=== PATIENT | male | born 1955 | race Caucasian/White ===

== ENCOUNTER 2017-04-22 17:02 | Emergency (ER) | payer OTHER ==
[~2017-04-22] VITALS: Ht 177.8 cm; Wt 121.8 kg
[~2017-04-22 17:02] MED LIST: ALLO300T29 PO; CHOL400T PO; GLYB2.5T5 PO; MELO-253 PO; MULT-892 PO; OMEP10CA4 PO; SMV40T PO; TRICOR145 PO; VIT E PO; [UNRECOGNIZED DRUG - CODE] PO
[2017-04-22 17:11] VITALS: BP 137/90; PULSE 117; RESP 14; O2SAT 98
[2017-04-22] MEDS ORDERED: FENO145T19 PO (17:17)
[2017-04-22] MEDS ORDERED: BENA1TAB15 PO (17:17)
[2017-04-22] MEDS ORDERED: DISU250T5 PO (17:17)
[2017-04-22] MEDS ORDERED: ALLO300T2 PO (17:17)
[2017-04-22] MEDS ORDERED: GLYB2.5T4 PO (17:17)
[2017-04-22] MEDS ORDERED: MELO-253 PO (17:17)
[2017-04-22] MEDS ORDERED: OMEP40CA36 PO (17:17)
[2017-04-22] MEDS: 0.9% Sodium Chloride 1,000 ML IV SCH ×2 (17:49→18:30)
[2017-04-22 17:55] LABS: BASOPHILS % (AUTO) 0.7 % (0-3); EOSINOPHILS % (AUTO) 5.4 % (0-5); MONOCYTES % (AUTO) 7.7 % (4-12); Mean Corpuscular Hemoglobin 30.5 pg (27.0-35.0); Mean Corpuscular Volume 84.5 fL (81-100); NEUTROPHILS % (AUTO) 67.5 % (40-74); Platelet Count 168 bil/L (150-400)
[2017-04-22 18:12] VITALS: BP 136/95; PULSE 102; RESP 18; O2SAT 98
--- NOTE | 2017-04-22 18:13 | ABG ---
DateTimeAnalyzed 18:06:00 -_ pH ____7.403 - pCO2 ___37.7__ -mmHg pO2 ___75.2__ -mmHg HCO3- ___23.0__ -mmol/L ABE ___-0.9__ -mmol/L tHb ___15.5__ -g/dL O2Hb ___92.3__ -% COHb ____1.7__ -% MetHb ____0.7__ -% sO2 ___94.6__ -% FIO2 ___21.0__ -% Drawn By RN - Date/Time Notified____ 18:13:00 -_ Notified By btl - Notified Whom ___Dr. O'Sylvie - B 761 -mmHg tO2 ___20.2__ -Vol% Gerald test N/A -
--- NOTE | 2017-04-22 18:15 | ED.REPORT ---
HPI-General Illness Date of Service Apr 22, 2017 ED Provider: Mc Ceja MD Pt is a 61 y/o male w/ a hx of NIDDM, HTN, presenting to the ED from his PCP ( Sachin FERNANDES) due to hyperglycemia of 439. The patient was seen at a [facility] today and was sent here for further evaluation once it was discovered that his blood sugar was 439 and he was tachycardic. The patient went there for routine f/u for blood tests. He hasn't been feeling well for 1 week with associated symptoms of malaise, lightheaded, difficulty concentrating , polyuria, polydipsia. He does have a history of diabetes and takes Glyburide 2.5 mg as directed and has not missed any doses. His blood sugars normally run around 150. He states he used Metformin in the past but didn't feel well after taking it so this was stopped. Pt denies CP, SOB, fever, chills, nausea, vomiting, abdominal pain. Nursing Notes Stated Complaint: HIGH BLOOD SUGAR Chief Complaint: General Complaint Nursing Notes Reviewed: Yes Allergies: Coded Allergies: lisinopril (Verified Allergy, Intermediate, Swelling of lips, 04/22/17) candesartan (Verified Allergy, Unknown, swollen lips, 04/22/17) Scheduled Allopurinol (Allopurinol) 300 Mg Tablet 300 MG PO DAILY Benazepril / HCTZ 20-25 mg (Benazepril / HCTZ 20-25 mg) 1 Each Tablet 2 TAB PO BID Disulfiram (Disulfiram) 250 Mg Tablet 250 MG PO DAILY Fenofibrate Nanocrystallized (Fenofibrate) 145 Mg Tablet 145 MG PO DAILY Glyburide (Glyburide) 2.5 Mg Tablet 2.5 MG PO DAILY Meloxicam (Meloxicam) 15 Mg Tablet 15 MG PO DAILY Omeprazole (Omeprazole) 40 Mg Capsule.dr 40 MG PO BID General Time Seen by MD: 18:10 Chief Complaint Other (hyperglycemia) Hx Obtained From: Patient Arrived By: Walk-in Sudden in Onset?: No Onset Occurred: Onset unknown Symptom Duration: Since onset Severity: Current: No pain currently Severity: Maximum: No pain Recent Healthcare: Recent doctor visit Similar Sx Previous: Yes Past Medical History Past Medical History Type 2 diabetes GERD Hypertension Alcohol abuse Hx pneumonia Hx ulcer Mild arthritis low back Past Surgical History None reported Smoking History Unknown if Ever Smoker Social History Alcohol Use: In recovery Ambulatory Status Independent Review of Systems Full Review of Systems Constitutional: Denies: Chills, Fever Respiratory: Denies: Non-productive cough, Shortness of breath Cardiovascular: Denies: Chest pain, Dyspnea on exertion GI: Denies: Abdominal pain, Nausea, Vomiting Male: Denies Dysuria Endocrine: Reports: Polydipsia, Polyuria Neurologic: Denies: Confusion Complete sys rev & neg: except as marked. Physical Exam Vital Signs Vital Signs Date Time Temp Pulse Resp B/P Pulse Ox O2 Delivery O2 Flow Rate FiO2 04/22/17 20:25 36.9 92 18 152/98 97 Room Air 04/22/17 19:01 96 20 157/108 99 Room Air 04/22/17 18:12 102 18 136/95 98 Room Air 04/22/17 17:11 36.9 117 14 137/90 98 Room Air Initial VS: Reviewed, Vital signs abnormal Head / Eyes: Atraumatic, Normocephalic, PERRL ENT: Mucous membranes moist, Conjunctiva normal, No scleral icterus Neck: Supple, Full range of motion Respiratory: Breath sounds normal, Clear to auscultation, No respiratory distress Cardiovascular: Regular rate & rhythm, Heart sounds normal, Intact distal pulses Abdomen / GI: Soft, Non-tender, No guarding, No rebound, No distention Extremities: Vascular intact, Neuro intact, No swelling, No tenderness Skin: Warm, Dry, No cyanosis Neurologic: Alert, Oriented, Nonfocal Psychiatric: Mood/affect normal, Behavior normal, Normal thought content General/Constitutional: Awake, Alert, No acute distress, Well appearing, Cooperative, Not toxic appearing Appearance / Presentation: Positive: Obese Interpretation & Diagnostics Lab Results Interpretation Result Diagram: 04/22/17 1751 04/22/17 1751 Test 04/22/17 17:51 04/22/17 17:52 04/22/17 18:48 White Blood Count 9.6th/mm3 (3.8-10.1) Red Blood Count 5.35mil/mm3 (4.40-5.80) Hemoglobin 16.3g/dL (13.8-17.2) Hematocrit 45.2% (41.0-50.0) Mean Corpuscular Volume 84.5fL (81-100) Mean Corpuscular Hemoglobin 30.5pg (27.0-35.0) Mean Corpuscular Hemoglobin Concent 36.1% (32.0-37.0) Red Cell Distribution Width 12.8% (12.3-15.4) Platelet Count 168bil/L (150-400) Neutrophils (%) (Auto) 67.5% (40-74) Lymphocytes (%) (Auto) 18.3% (14-46) Monocytes (%) (Auto) 7.7% (4-12) Eosinophils (%) (Auto) 5.4% (0-5) Basophils (%) (Auto) 0.7% (0-3) Sodium Level 134mEq/L (134-144) Potassium Level 4.4mEq/L (3.5-5.2) Chloride Level 94mEq/L (97-108) Carbon Dioxide Level 22mmol/L (18-29) Blood Urea Nitrogen 31mg/dL (6-24) Creatinine 1.17mg/dL (0.76-1.27) Estimat Glomerular Filtration Rate 68mL/min (>59) Glucose Level 437mg/dL (60-99) Calcium Level 10.0mg/dL (8.5-10.1) Total Bilirubin 0.4mg/dL (0.0-1.2) Aspartate Amino Transf (AST/SGOT) 62U/L (0-50) Alanine Aminotransferase (ALT/SGPT) 69U/L (0-44) Alkaline Phosphatase 102U/L (25-160) Total Protein 8.3g/dL (6.4-8.4) Albumin 4.4g/dL (3.4-5.0) Ketones Negative (Negative) Hold Jacob Top Tube Received (Received) Hold Urine Received (Received) ABG Interpretation ABG Interpretation: VENOUS: DateTimeAnalyzed 18:06:00 -_ pH ____7.403 - pCO2 ___37.7__ -mmHg pO2 ___75.2__ -mmHg HCO3- ___23.0__ -mmol/L ABE ___-0.9__ -mmol/L Exam Performed by: Allied health pract Exam Interpreted by: ED physician Re-Eval/Medical Decision Med Decision/Clinical Course Pt is a 61 y/o male w/ a hx of NIDDM, HTN, presenting to the ED from his PCP ( Sachin FERNANDES) due to hyperglycemia of 439. He complains of feeling generally "lousy and fatigued" and having increased thirst. He states that he is taking his prescribed glyburide for his diabetes though he has never required insulin in the past. He has no other complaints at this time. He states that he was sent here because his nurse practitioner stated that she could "not handle his high blood sugar". Here in the emergency department the patient is afebrile, hemodynamically stable and in no apparent distress. His examination is relatively benign. Blood glucose upon arrival 439 He was treated with IV fluids, 10 units of subcutaneous insulin Labs notable as below: CBC: unremarkable CMP: very mildly elevated transaminases, glucose of 437, BUN of 31, creatinine of 1.17, bicarb of 22. Anion gap is 18 Ketones negative Venous blood gas: pH 7.403 pCO2 37.7 pO2 75.2 HCO3- 23.0 MARINE -0.9 Serial blood sugars improved after treatment with insulin and IV fluids. No evidence at this time of diabetic ketoacidosis or significant hyperglycemic hyperosmolar state. Patient is well-appearing with stable vital signs and nontoxic. No evidence of acute coronary syndrome based upon his presentation today. No evidence of acute infectious insult. Patient was discussed with Lázaro programmable logic controller assembler for his primary care physician Dr. Garcia. He will be seen in clinic tomorrow or Wednesday. They will reassess at that time need to start subcutaneous insulin. Prior to discharge follow-up and return precautions were reviewed in detail with the patient who verbalized understanding and agreement with the plan. The patient was discharged in stable condition. Time of Eval: 19:57 Re-Evaluation/Progress Note: Pt rechecked. Informed pt of plan for treatment. Pt understands and agrees with plan for treatment. F/U instructions and RTER warnings given. All questions addressed. Consultation : Referral / Consult Name: Christofer Garcia DO Call Returned at: 19:57 Air Traffic Controller Center: Agrees with eval, Agrees with plan Note: Will make sure [facility] knows about the patient and get him in within a few days. Counseled Regarding: Diagnosis, Lab results, Need for follow-up, When/why to return to ED Discharge & Departure Primary Impression: Hyperglycemia Additional Impressions: Dehydration Fatigue Fatigue type: unspecified Qualified Code: R53.83 - Other fatigue Obesity Obesity type: unspecified obesity type Obesity severity: unspecified obesity severity Qualified Code: E66.9 - Obesity, unspecified Transaminitis History of alcohol abuse Disposition: Home Discharge Condition All VS Reviewed: Yes Condition: Stable Patient Instructions: Type 2 Diabetes in Adults (ED) Additional Instructions: Thank you for seeking care at the emergency room. It is difficult for us to make definitive diagnoses in the ED but we believe that you are experiencing symptoms caused by high blood sugar. Our primary goal today in the ED was to evaluate you for any life-threatening conditions. Your evaluation was reassuring. Your labs tests today were reassuring other than the blood sugar of 439. Please continue to take your glyburide. Call first thing tomorrow morning to get in and see Dr. Easley. They will be check your sugar and may start you on a low-dose of insulin. You should return to the ED immediately if you develop increasing urination, increasing thirst, fevers, vomiting, cough, shortness of breath, chest pain, lightheadedness, weakness or any other concerning signs or symptoms. Thank you for letting us partake in your care today. Referrals: Josué Easley DO (PCP) Sachin Van Attestation Portions of this note were transcribed by Seferino Mckeon. I, Dr. Ceja, personally performed the history, physical exam and medical decision-making; I reviewed and confirmed the accuracy of the information in the transcribed note. Signed by Nicolás Magallanes, 04/22/17 - 1830 copies to: Sachin Van; Josué Easley Beck O MD Jul 13, 2017 18:15 SEFERINO MCKEON Apr 22, 2017 18:17
[2017-04-22] MEDS ORDERED: Insulin Human REGular-Omnicell 100 Unit/mL SUBQ ONE (18:35)
[2017-04-22 19:01] VITALS: BP 157/108; PULSE 96; RESP 20; O2SAT 99
[2017-04-22] MEDS ORDERED: 0.9% Sodium Chloride 1,000 ML IV ONE (19:55)
[2017-04-22 20:25] VITALS: BP 152/98; PULSE 92; RESP 18; O2SAT 97
== END 2017-04-22 20:26 | disposition home or self-care (01) ==
LOC: SED 17:02
DX: E11.65 Type 2 diabetes mellitus with hyperglycemia (principal); E86.0 Dehydration; E66.9 Obesity, unspecified; R74.0 Nonspecific elevation of levels of transaminase and lactic acid dehydrogenase [LDH]; R53.83 Other fatigue; F10.10 Alcohol abuse, uncomplicated; I10 Essential (primary) hypertension; K21.9 Gastro-esophageal reflux disease without esophagitis; Z87.01 Personal history of pneumonia (recurrent); Z86.59 Personal history of other mental and behavioral disorders; Z88.8 Allergy status to other drugs, medicaments and biological substances; Z79.84 Long term (current) use of oral hypoglycemic drugs
CPT/HCPCS: 36415; 80053; 82009; 82375; 82803; 82948; 85025; 93005; 96360; 96361; 96372; 99285; J1815; J7030

== ENCOUNTER 2017-05-06 15:03 | Observation (INO) | payer OTHER ==
[~2017-05-06] VITALS: Ht 177.8 cm; Wt 116.7 kg
[~2017-05-06 15:03] MED LIST changes: +ALLO300T2 PO; -ALLO300T29 PO; +BENA1TAB15 PO; -CHOL400T PO; +DISU250T5 PO; +FENO145T19 PO; +GLYB2.5T4 PO; -GLYB2.5T5 PO; -MULT-892 PO; -OMEP10CA4 PO; +OMEP40CA36 PO; -SMV40T PO; -TRICOR145 PO; -VIT E PO; -[UNRECOGNIZED DRUG - CODE] PO
[2017-05-06] MEDS ORDERED: 0.9% Sodium Chloride 1,000 ML IV ONE ×2 (15:24→19:30)
--- NOTE | 2017-05-06 15:37 | DRSVH ---
PROCEDURE: CT BRAIN (TPA) ([id number]) INDICATIONS: confusion TECHNIQUE: Noncontrast 4.5 mm thick angled axial sections acquired from the foramen magnum to the vertex, with c oronal reformats. COMPARISON: None. FINDINGS: Image quality: Limited by patient motion requiring separate acquisitions of the cephalad and caudal p ortions of the brain. CSF spaces: Basal cisterns are patent. No extra-axial fluid collections. Ventricles are normal in size and shape. Brain: No midline shift. No intracranial masses or hemorrhage. Best-white matter interface is norm al. Skull and face: Calvarium and visualized facial bones are intact, without suspicious lesions. Sinuses: Visualized sinuses and mastoids are clear. IMPRESSION: 1. No acute intracranial disease process within the limitations caused by motion artifact.. 2. Findings telephoned to Dr. Shun Fitzgerald on 05/06/17 at 1533 hrs. This study fulfills neurological imaging criteria for inclusion or exclusion of acute stroke therapie s based on available published neurological imaging guidelines. Dictated by: Kassandra Mcgee MD, PhD on 05/06/2017 at 15:30 Approved by: Kassandra Mcgee MD, PhD on 05/06/2017 at 15:35
[2017-05-06 15:39] LABS: EOSINOPHILS % (AUTO) 3.2 % (0-5); MONOCYTES % (AUTO) 9.8 % (4-12); Mean Corpuscular Hemoglobin 30.9 pg (27.0-35.0); Mean Corpuscular Volume 85.1 fL (81-100); NEUTROPHILS % (AUTO) 61.5 % (40-74); Platelet Count 180 bil/L (150-400)
[2017-05-06 15:41] VITALS: BP 147/91; PULSE 100; RESP 24; O2SAT 96
[2017-05-06 15:51] VITALS: BP 149/94; PULSE 94; RESP 21; O2SAT 95
[2017-05-06 16:03] LABS: INR 0.94 ratio
[2017-05-06 16:15] LABS: TROPONIN T < 0.010 ug/L (0.0-0.011)
--- NOTE | 2017-05-06 16:34 | ABG ---
DateTimeAnalyzed 16:27:00 -_ pH ____7.400 - 7.350 7.450 pCO2 ___37.8__ -mmHg 35.0 45.0 pO2 ___47.4__ -mmHg 69.0 116 HCO3- ___22.9__ -mmol/L 22.0 26.0 ABE ___-1.0__ -mmol/L tHb ___14.5__ -g/dL O2Hb ___81.1__ -% COHb ____1.0__ -% MetHb ____0.9__ -% sO2 ___82.7__ -% FIO2 ___21.0__ -% Drawn By gj - Date/Time Notified____ 16:34:00 -_ Oxygen Device 1 _ROOM AIR - Notified By gj - Notified Whom ___DR. ELISABET - B 761 -mmHg tO2 ___16.5__ -Vol% Gerald test _Positive -
--- NOTE | 2017-05-06 17:10 | ED.REPORT ---
HPI-Stroke / CVA May 06, 2017 ED Provider: Jomar Fitzgerald MD A 61 year old male with a history of diabetes, high cholesterol, hypertension and pneumonia is brought to the ED via EMS due to a possible stroke. The pt became confused at 12:00, followed by right-sided numbness/tingling, difficulty speaking, difficulty swallowing, diaphoresis, lightheadedness and blurred vision. He denies syncope. The pt was seen in the ED recently for hyperglycemia , at which point he was experiencing confusion, but states this feels different. His confusion has been persistent since onset without notable alleviating or exacerbating factors. Patient is somewhat of a difficult historian, though denies any other complaints at this time. Nursing Notes Stated Complaint: DIFFICULTY SWALLOWING Chief Complaint: Stroke Symptoms Nursing Notes Reviewed: Yes Allergies: Coded Allergies: lisinopril (Verified Allergy, Intermediate, Swelling of lips, 04/22/17) candesartan (Verified Allergy, Unknown, swollen lips, 04/22/17) Bumble Bee (Verified Adverse Reaction, Severe, anaphylactic , 05/06/17) Scheduled Allopurinol (Allopurinol) 300 Mg Tablet 300 MG PO DAILY (Reported) Benazepril / HCTZ 20-25 mg (Benazepril / HCTZ 20-25 mg) 1 Each Tablet 2 TAB PO DAILY (Reported) Fenofibrate Nanocrystallized (Fenofibrate) 145 Mg Tablet 145 MG PO DAILY ( Reported) Glyburide (Glyburide) 2.5 Mg Tablet 2.5 MG PO DAILY (Reported) Insulin Glargine (Lantus U100 Insulin Vial) 100 Unit/Ml Vial 10 UNIT SUBQ BID ( Reported) Omeprazole (Omeprazole) 40 Mg Capsule.dr 40 MG PO BID (Reported) General Time Seen by Provider: 15:23 Chief Complaint Numbness, Confusion, Slurred speech Hx Obtained From: Patient Arrived By: Walk-in Time last known well 12:00 Sudden in Onset?: Yes Symptom Duration: Since onset Progression Since Onset: Constant Associated with: Reports: Confusion, Denies: Balance problem, Headache, Incontinence, Loss of consciousness, Syncope, Vomiting Pertinent Negative: Pt denies other symptoms Pertinent Negative: Exacerbated by nothing, Relieved by nothing Context Related History: Reports: Diabetes mellitus, Denies: Cerebrovascular accident, Intracranial bleed, Intracranial neoplasm Recent Healthcare: Recent doctor visit Similar Sx Previous: No Risk Factors )( TPA Administration/Criteria Stroke Thrombolytic Therapy : TPA Considered: Yes Neurologist Contacted: Yes Disc Risk/Benefit/Alternatives: Yes TPA Administered Intravenously: No, not indicated Relative Exclusion Crit: Minor improv stroke sym NIH Stroke Scale Level of Consciousness: Alert and responsive (0) Ask Month & Age: Both questions right (0) Open/Close Eyes/Hand Range Management Specialist: Performs both tasks (0) Horizontal EO Movements: None (0) Visual Blanc: No visual loss (0) Facial Palsy: Normal symmetry (0) Right Arm Motor Drift (10s): No drift 10 sec (0) Left Arm Motor Drift (10s): No drift 10 sec (0) Right Leg Motor Drift (5s): No drift 5 sec (0) Left Leg Motor Drift (5s): No drift 5 sec (0) Limb Ataxia FNF/Heel-[place]: No ataxia (0) Sensation (Arms/Legs/Face): Pinprick less sharp (1) (sensation decreased on right as compared to the left) Language Aphasia: No aphasia, normal (0) Dysarthria: No dysarthria, normal (0) Extinction/Inattention: No exctinct/inattent (0) NIHSS Score: 1 Time NIHSS Performed: 15:32 Date NIHSS Performed: May 06, 2017 Past Medical History Past Medical History Notes: Denies pertinent family hx Past Medical History Type 2 diabetes GERD Hypertension Alcohol abuse Hx pneumonia Hx ulcer High cholesterol Mild arthritis low back 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 Past Surgical History None reported Smoking History Unknown if Ever Smoker Social History Alcohol Use: In recovery Ambulatory Status Independent Review of Systems Review of Systems Note: difficulty speaking difficulty swallowing right-sided weakness Constitutional: Reports: Weakness - generalized, Denies: Fever Eyes: Denies: Diplopia, Visual loss bilateral Ears / Nose / Throat: Denies: Sore throat, Throat swelling Respiratory: Denies: Non-productive cough, Shortness of breath Cardiovascular: Denies: Chest pain GI: Denies: Abdominal pain Musculoskeletal: Denies: Back pain Skin: Reports Diaphoresis Neurologic: Reports: Confusion, Lightheaded, Numbness, Weakness, Denies: Syncope Psychiatric: Reports: Confusion, Denies: Hostile Complete sys rev & neg: except as marked. Physical Exam Constitutional: Well-developed, well-nourished. Appears somewhat confused. Head: Normocephalic and atraumatic. Mouth/Throat: Oropharynx is clear and moist. No oropharyngeal exudate. Eyes: EOM are normal. Left pupil 7 mm and irregular (baseline per patient). Right pupil 3 mm and reactive. Neck: Supple, no tracheal deviation. Cardiovascular: Normal rate, regular rhythm. Equal and intact distal pulses throughout. Pulmonary/Chest: Effort normal and breath sounds normal. No respiratory distress. Abdominal: Soft. No distension. There is no tenderness, rebound, or guarding. Bowel sounds present. Musculoskeletal: Range of motion grossly intact, moving all extremities. No edema or tenderness appreciated. Neurological: Somewhat hesitant to respond, but is AOx3. Sensation decreased on right as compared to the left (less sharp). Gag reflex intact. NIH stroke scale : 1 - please see above. Skin: Warm and dry, no rashes or pallor appreciated. Psychiatric: Appropriate mood and affect. Behavior appears normal. Initial Vital Signs Vital Signs (First) Date Time Temp Pulse Resp B/P Pulse Ox O2 Delivery O2 Flow Rate FiO2 05/06/17 15:41 36.9 100 24 147/91 96 Room Air Initial VS: Reviewed Interpretation & Diagnostics Lab Results Interpretation Result Diagram: 05/06/17 1525 05/06/17 1525 Test 05/06/17 15:25 05/06/17 17:26 White Blood Count 7.7th/mm3 (3.8-10.1) Red Blood Count 5.05mil/mm3 (4.40-5.80) Hemoglobin 15.6g/dL (13.8-17.2) Hematocrit 43.0% (41.0-50.0) Mean Corpuscular Volume 85.1fL (81-100) Mean Corpuscular Hemoglobin 30.9pg (27.0-35.0) Mean Corpuscular Hemoglobin Concent 36.3% (32.0-37.0) Red Cell Distribution Width 12.9% (12.3-15.4) Platelet Count 180bil/L (150-400) Neutrophils (%) (Auto) 61.5% (40-74) Lymphocytes (%) (Auto) 24.2% (14-46) Monocytes (%) (Auto) 9.8% (4-12) Eosinophils (%) (Auto) 3.2% (0-5) Basophils (%) (Auto) 1.0% (0-3) Prothrombin Time 10.0sec (8.1-12.5) Prothromb Time International Ratio 0.94ratio Activated Partial Thromboplast Time 27.0sec (22.8-33.0) Sodium Level 134mEq/L (134-144) Potassium Level 4.0mEq/L (3.5-5.2) Chloride Level 97mEq/L (97-108) Carbon Dioxide Level 18mmol/L (18-29) Blood Urea Nitrogen 19mg/dL (6-24) Creatinine 1.02mg/dL (0.76-1.27) Estimat Glomerular Filtration Rate 79mL/min (>59) Glucose Level 122mg/dL (60-99) Calcium Level 10.1mg/dL (8.5-10.1) Total Bilirubin 0.4mg/dL (0.0-1.2) Aspartate Amino Transf (AST/SGOT) 71U/L (0-50) Alanine Aminotransferase (ALT/SGPT) 70U/L (0-44) Alkaline Phosphatase 73U/L (25-160) Troponin T < 0.010ug/L (0.0-0.011) Total Protein 8.1g/dL (6.4-8.4) Albumin 4.4g/dL (3.4-5.0) Hold Jacob Top Tube Received (Received) Alcohols < 10mg/dL (0-10) Urine Color Yellow (YELLOW) Urine Appearance Clear (CLEAR,HAZY) Urine pH 6.0 (5.0-8.0) Urine Specific [place] 1.010 (1.003-1.035) Urine Protein Negativemg/dL (NEG,TRACE) Urine Glucose (UA) Negativemg/dL (NEGATIVE) Urine Ketones Negativemg/dL (NEGATIVE) Urine Occult Blood Negative (NEGATIVE) Urine Nitrite Negative (NEGATIVE) Urine Bilirubin Negative (NEGATIVE) Urine Urobilinogen 1.0mg/dL (NORMAL) Urine Leukocyte Esterase Negative (NEGATIVE) Urine RBC N/hpf (0-2) Urine WBC N/hpf (0-5) Urine Epithelial Cells None/hpf (NONE-MOD) Urine Crystals None seen (NONE SEEN) Urine Bacteria Few/hpf (NONE-FEW) Urine Hyaline Casts None/lpf (NONE) Urine Granular Casts None seen (NONE SEEN) Urine Waxy Casts None seen (NONE SEEN) Urine Red Blood Cell Casts None seen (NONE SEEN) Urine White Blood Cell Casts None seen (NONE SEEN) Urine Mucus None seen (None Seen) Urine Trichomonas None seen (NONE SEEN) Urine Yeast None (NONE SEEN) Urinalysis Comment None Urine Culture Reflexed Not indicated ECG Interpretation ECG Interpretation: normal sinus rhythm with a rate of 97 Time: 15:56 Interpreted by: ED physician CT Head Interpretation IMPRESSION: 1. No acute intracranial disease process within the limitations caused by motion artifact.. 2. Findings telephoned to Dr. Shun Fitzgerald on 05/06/17 at 1533 hrs. This study fulfills neurological imaging criteria for inclusion or exclusion of acute stroke therapies based on available published neurological imaging guidelines. Dictated by: Kassandra Mcgee MD, PhD on 05/06/2017 at 15:30 Approved by: Kassandra Mcgee MD, PhD on 05/06/2017 at 15:35 Interpretation / Wet Read by: Interpret - Radiologist Re-Eval/Medical Decision Med Decision/Clinical Course In summary, 61-year-old male presenting to the ED for evaluation of the acute onset of confusion and right-sided numbness/weakness that started approximately 3 hours prior to arrival. Differential is broad and includes stroke/CVA, TIA, hypoglycemia, intracranial bleed, neuropathy, metabolic abnormality, acute intoxication, etc. Given the acute onset of his symptoms, he was made a code stroke upon his arrival and taken directly to the CT scanner. I met him upon arrival back to the room. Blood glucose within normal limits. Still having right-sided numbness and tingling, decreased sensation as compared to the left; NIH stroke scale of 1. tPA considered and discussed with the neurologist at [facility], as well as the patient, however given relatively low stroke scale score and disability, it was felt that the risks of tPA outweighed its benefits. Rest of workup here in the ED unrevealing for a cause; blood gas with no evidence of acidosis or acute compensation noted. CBC and CMP grossly within normal limits with the exception of the patient's liver function tests with a mildly elevated AST and ALT. Troponin negative. Alcohol levels negative. Given aspirin. EKG demonstrates sinus rhythm, no acute ischemic changes. Given the above, plan admission for further management and evaluation of suspected stroke, MRI, etc. Discussed with the patient at length, who is agreeable to the plan as stated, no further questions. Source of Hx: Old records Re-Evaluation/Progress : Time of Eval: 15:47 Patient Status: Condition improved Re-Evaluation/Progress Note: Pt informed of the diagnosis and plan for admission during the intial interview. The pt understands and agrees with the plan. All questions are addressed at this time. Consultation #1: Call Returned at: 15:41 Note: Consulted with [facility] regarding pt's case. [facility] agrees with the evaluation and plan. Consultation #2: Referral / Consult Name: Santiago Ferreira Consulted With: Hospitalist Call Returned at: 17:10 Clinical Assoc: Agrees with eval, Agrees with plan, Accepts admit Note: Spoke with Dr. Ferreira, hospitalist, regarding pt's case. Dr. Ferreira agrees with the evaluation and agrees to admit the pt. Counseled Regarding: Diagnosis, Lab results, Need for admission Patient Discharge & Departure Impression: Primary Impression: CVA (cerebral vascular accident) CVA mechanism: unspecified Qualified Code: I63.9 - Cerebral infarction, unspecified Disposition: ADMITTED TO HOSPITAL Discharge Condition All VS Reviewed: Yes Condition: Stable Referrals: Sachin Van (PCP) Crit Care Except Billable Proc Time Spent: 30-74 minutes Services Performed: Patient management by me, Time spent at bedside, Reviewing test results, Reviewing imaging, Discussing patient care, Documentation in record Critical Care Notes: Please see MDM. Scribe Attestation Portions of this note were transcribed by Ami Wallace. I, Dr. Fitzgerald personally performed the history, physical exam and medical decision-making; I reviewed and confirmed the accuracy of the information in the transcribed note. copies to: Sachin Van William B MD May 06, 2017 17:10 AMI WALLACE May 06, 2017 17:17
[2017-05-06 17:20] VITALS: BP 143/89; PULSE 87; RESP 20; O2SAT 96
[2017-05-06 17:45] LABS: APPEARANCE,URINE CLEAR (CLEAR,HAZY); COLOR,URINE YELLOW (YELLOW); OCCULT BLOOD,URINE NEGATIVE (NEGATIVE)
[2017-05-06] MEDS ORDERED: INSU100V7 SUBQ (18:26)
[2017-05-06] MEDS ORDERED: Ondansetron 2 mg/mL 2 mL Inj IVPUSH PRN (19:30)
[2017-05-06] MEDS ORDERED: Labetalol 5 mg/mL 4 mL Inj IVPUSH PRN (19:30)
[2017-05-06] MEDS ORDERED: Alum-Mag Hydrox-Simeth 30 mL Suspension PO PRN (19:30)
[2017-05-06] MEDS ORDERED: Polyethylene Glycol (PEG) 17 Gm Powder PO PRN (19:30)
--- NOTE | 2017-05-06 19:38 | PCM.HPMED ---
Subjective Date of Service May 06, 2017 Primary Provider: Admitting Physician: Jimbo Lombardi MD Primary Care Physician: Sachin Van Attending Physician: Jimbo Lombardi MD Chief Complaint: Right-sided sensation loss History of Present Illness: 61-year-old male with history of alcoholism, diabetes, and untreated sleep apnea presents to the emergency department due to acute onset of right sided numbness, aphasia confusion, and lightheadedness. The patient states that this started at 12:00 today while he was at work and also states that it began with numbness in both of his upper limbs before localizing in the right, and also describes associated diaphoresis, head pressure and a racing heartbeat with mild chest pressure. Patient states that he has had multiple episodes like this over the last few years but this one was by far the worst. During this episode he had a sense of impending doom and states that his personal life he has under more stress than he has ever been under. Patients also states that couple weeks ago she had blurry vision and his had intermittent episodes of cloudy mentation but all of these seem to be connected with a blood glucose of greater than 450. Over the last couple days he says his blood glucoses been much better but is unable to give a number. Patient is a former alcoholic but has been sober for 8 weeks without reports of seizure activity. This alcoholism is also affected his personal relationships this family. Emergency room CT was negative for bleed. Patient was given aspirin and a liter of normal saline. Labs are relatively unremarkable except for mild elevation in transaminases and glucose of 122. On examining the ED the patient' s NIH score of 1 with decreased sensation on the right compared to left face, upper extremity. Patient is not a candidate for TPA due to symptom severity not meeting threshold. Review of Systems: Complete review of systems performed; pertinent positives and negatives per history of present illness, all other systems reviewed and are negative Constitutional: Negative, except as otherwise mentioned in the history above. Ophthalmologic: Negative, except as otherwise mentioned in the history above. Cardiovascular: Negative, except as otherwise mentioned in the history above. Respiratory: Negative, except as otherwise mentioned in the history above. Gastrointestinal: Negative, except as otherwise mentioned in the history above. Genitourinary: Negative, except as otherwise mentioned in the history above. Musculoskeletal: Negative, except as otherwise mentioned in the history above. Neurological: Negative, except as otherwise mentioned in the history above. Psychiatric: Negative, except as otherwise mentioned in the history above. Hematologic/Lymphatic: Negative, except as otherwise mentioned in the history above. Allergic/Immunologic: Negative, except as otherwise mentioned in the history above. Allergies Coded Allergies: lisinopril (Verified Allergy, Intermediate, Swelling of lips, 04/22/17) candesartan (Verified Allergy, Unknown, swollen lips, 04/22/17) Bumble Bee (Verified Adverse Reaction, Severe, anaphylactic , 05/06/17) Home Medications Allopurinol (Allopurinol) 300 Mg Tablet 300 MG PO DAILY (Reported) Benazepril / HCTZ 20-25 mg (Benazepril / HCTZ 20-25 mg) 1 Each Tablet 2 TAB PO DAILY (Reported) Fenofibrate Nanocrystallized (Fenofibrate) 145 Mg Tablet 145 MG PO DAILY ( Reported) Glyburide (Glyburide) 2.5 Mg Tablet 2.5 MG PO DAILY (Reported) Insulin Glargine (Lantus U100 Insulin Vial) 100 Unit/Ml Vial 10 UNIT SUBQ BID ( Reported) Omeprazole (Omeprazole) 40 Mg Capsule.dr 40 MG PO BID (Reported) Exam Vital Signs & I/O Vital Sign- Last 8 Hours Date Time Temp Pulse Resp B/P Pulse Ox O2 Delivery O2 Flow Rate FiO2 05/07/17 05:45 36.8 84 16 131/85 98 Room Air 05/07/17 00:57 36.7 72 18 108/72 98 Room Air Intake and Output- Last 8 Hour 05/07/17 Cumulative From/Thru 06:59 05/06/17 15:41 - 05/07/17 05:45 Intake Total 100 ml 1099 ml Output Total 1000 ml 1000 ml Balance -900 ml 99 ml Intake Oral 100 ml 100 ml IV Total 999 ml Output Urine Total 1000 ml 1000 ml # Voids 1 1 # Bowel Movements 0 0 Lab & Micro Results Laboratory Tests Test 05/06/17 15:25 05/06/17 17:26 05/06/17 22:07 05/06/17 23:00 White Blood Count 7.7th/mm3 (3.8-10.1) Red Blood Count 5.05mil/mm3 (4.40-5.80) Hemoglobin 15.6g/dL (13.8-17.2) Hematocrit 43.0% (41.0-50.0) Mean Corpuscular Volume 85.1fL (81-100) Mean Corpuscular Hemoglobin 30.9pg (27.0-35.0) Mean Corpuscular Hemoglobin Concent 36.3% (32.0-37.0) Red Cell Distribution Width 12.9% (12.3-15.4) Platelet Count 180bil/L (150-400) Neutrophils (%) (Auto) 61.5% (40-74) Lymphocytes (%) (Auto) 24.2% (14-46) Monocytes (%) (Auto) 9.8% (4-12) Eosinophils (%) (Auto) 3.2% (0-5) Basophils (%) (Auto) 1.0% (0-3) Prothrombin Time 10.0sec (8.1-12.5) Prothromb Time International Ratio 0.94ratio Activated Partial Thromboplast Time 27.0sec (22.8-33.0) Sodium Level 134mEq/L (134-144) Potassium Level 4.0mEq/L (3.5-5.2) Chloride Level 97mEq/L (97-108) Carbon Dioxide Level 18mmol/L (18-29) Blood Urea Nitrogen 19mg/dL (6-24) Creatinine 1.02mg/dL (0.76-1.27) Estimat Glomerular Filtration Rate 79mL/min (>59) Glucose Level 122mg/dL (60-99) Calcium Level 10.1mg/dL (8.5-10.1) Total Bilirubin 0.4mg/dL (0.0-1.2) Aspartate Amino Transf (AST/SGOT) 71U/L (0-50) Alanine Aminotransferase (ALT/SGPT) 70U/L (0-44) Alkaline Phosphatase 73U/L (25-160) Troponin T < 0.010ug/L (0.0-0.011) 0.010ug/L (0.0-0.011) Total Protein 8.1g/dL (6.4-8.4) Albumin 4.4g/dL (3.4-5.0) Triglycerides Level 225mg/dL (0-149) Cholesterol Level 140mg/dL (100-199) LDL Cholesterol, Calculated 65.000mg/dL (0-99) VLDL Cholesterol 45.000mg/dL HDL Cholesterol 30mg/dL (>39) Cholesterol/HDL Ratio 4.67 (0.0-4.4) Hold Jacob Top Tube Received (Received) Alcohols < 10mg/dL (0-10) Urine Color Yellow (YELLOW) Urine Appearance Clear (CLEAR,HAZY) Urine pH 6.0 (5.0-8.0) Urine Specific [place] 1.010 (1.003-1.035) Urine Protein Negativemg/dL (NEG,TRACE) Urine Glucose (UA) Negativemg/dL (NEGATIVE) Urine Ketones Negativemg/dL (NEGATIVE) Urine Occult Blood Negative (NEGATIVE) Urine Nitrite Negative (NEGATIVE) Urine Bilirubin Negative (NEGATIVE) Urine Urobilinogen 1.0mg/dL (NORMAL) Urine Leukocyte Esterase Negative (NEGATIVE) Urine RBC N/hpf (0-2) Urine WBC N/hpf (0-5) Urine Epithelial Cells None/hpf (NONE-MOD) Urine Crystals None seen (NONE SEEN) Urine Bacteria Few/hpf (NONE-FEW) Urine Hyaline Casts None/lpf (NONE) Urine Granular Casts None seen (NONE SEEN) Urine Waxy Casts None seen (NONE SEEN) Urine Red Blood Cell Casts None seen (NONE SEEN) Urine White Blood Cell Casts None seen (NONE SEEN) Urine Mucus None seen (None Seen) Urine Trichomonas None seen (NONE SEEN) Urine Yeast None (NONE SEEN) Urinalysis Comment None Urine Culture Reflexed Not indicated Hepatitis C Comment . Urine Opiates Screen Negative Urine Methadone Screen Negative Urine Barbiturates Screen Negative Urine Amphetamines Screen Negative Urine Benzodiazepines Screen Negative Urine Cocaine Metabolite Screen Negative Urine Cannabinoids Screen Negative Test 05/07/17 07:00 White Blood Count 4.7th/mm3 (3.8-10.1) Red Blood Count 4.57mil/mm3 (4.40-5.80) Hemoglobin 14.0g/dL (13.8-17.2) Hematocrit 39.7% (41.0-50.0) Mean Corpuscular Volume 86.9fL (81-100) Mean Corpuscular Hemoglobin 30.6pg (27.0-35.0) Mean Corpuscular Hemoglobin Concent 35.3% (32.0-37.0) Red Cell Distribution Width 13.0% (12.3-15.4) Platelet Count 141bil/L (150-400) Neutrophils (%) (Auto) 56.2% (40-74) Lymphocytes (%) (Auto) 26.8% (14-46) Monocytes (%) (Auto) 9.7% (4-12) Eosinophils (%) (Auto) 5.6% (0-5) Basophils (%) (Auto) 1.3% (0-3) Result Diagram: 05/07/17 0700 05/06/17 1525 PMH Type 2 diabetes GERD Hypertension Alcohol abuse Hx pneumonia Hx ulcer High cholesterol Mild arthritis low back 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 Surgical History None reported Family History Brother of kidney cancer Dad of kidney cancer, CHF, and diabetes Mom alive with hypertension Social History Hx Alcohol Use: Yes (sober 8 weeks) Hx Tobacco Use: No Smoking Status: Unknown if Ever Smoker Living Arrangement: with Family Exam Vital Signs Vital Sign - Last Date Time Temp Pulse Resp B/P Pulse Ox O2 Delivery O2 Flow Rate FiO2 05/06/17 17:20 87 20 143/89 96 Room Air 05/06/17 15:41 36.9 Exam General: Pleasant, talkative male, little older than he appears HEENT: Pupils are both reactive although left is more dilated than right which patient states is chronic due to injury, EOMI, nonicteric, membranes moist Lymph: No lymphadenopathy Cardio: Regular rate and rhythm no murmurs rubs or gallops Respiratory: CTA bilaterally, no wheezes, no crackles Abdomen: Soft, positive bowel sounds, nontender, nondistended Extremities: No edema, 5/5 strength, sensation intact Psych: Appropriate mood and affect Neuro: CN II through XII grossly intact, sensation intact throughout except on the right forehead where he still has mild decreased sensation Skin: No rash Lab and Diagnostics Result Diagram: 05/07/17 0700 05/06/17 1525 X-Rays, CTs and MRIs Brain CT 1. No acute intracranial disease process within the limitations caused by motion artifact.. 2. Findings telephoned to Dr. Shun Fitzgerald on 05/06/17 at 1533 hrs. This study fulfills neurological imaging criteria for inclusion or exclusion of acute stroke therapies based on available published neurological imaging guidelines. Dictated by: Kassandra Mcgee MD, PhD on 05/06/2017 at 15:30 12-lead ECG Normal sinus rhythm heart rate 97 Assessment & Plan 61-year-old male with history of alcohol abuse, hypertension, and diabetes who presented due to an interesting constellation of symptoms consistent with either a TIA, conversion disorder, and/or panic attack, with a racing heartbeat and mild chest pain. TIA/stroke; present admission; ongoing -Constellation of symptoms are somewhat confusing, however he demonstrates findings on exam -Has also had recurrence of these episodes which may hint at a psychological etiology -CT brain was negative for bleed -MRI stroke protocol -Atorvastatin 10 mg daily -Aspirin 325 mg daily -Lipid panel and A1c -Permissive hypertension; control>220 with labetalol -Plavix given 1 -Echo Chest pain, present on admission; ongoing -During this attack patient describes mild chest pain -Due to comorbidities will order stress test -Initial troponin negative, will order for morning Type 2 diabetes; present admission; ongoing -Continue home glargine 10 units subcutaneous twice a day -Low correctional -A1c ordered History of Alcohol abuse with elevated transaminases -Patient sober 8 weeks -No CIWA ordered -Hepatitis panel ordered -Recommend ultrasound outpatient GERD -Famotidine Hypertension -Continue Benazepril/HCTZ Gout -Continue allopurinol Disposition: Patient has been admitted to the general medical floor under observation Full code Pain Evaluation: Adequate Pain Control GI Prophylaxis: H2 oswald VTE Mechanical Devices: Intermittant Pneumatic CD Resuscitation Status: CPR: Attempt Resuscitation Attending Statement The patient was seen and examined together with Dr. Wild on 05/06/17 and I agree with the history, exam and plan as outlined in the note above. Domingo Wild DO May 06, 2017 19:38 Jimbo Lombardi MD May 06, 2017 20:02 Santiago Ferreira May 07, 2017 07:41
[2017-05-06] MEDS ORDERED: Glucose 40% Oral Gel 15 Gm Tube PO PRN (19:45)
[2017-05-06 19:57] VITALS: BP 128/81; PULSE 99; RESP 20; O2SAT 96
--- NOTE | 2017-05-06 20:00 | NUR ---
admit: admit assessment complete. pt A&OX3, pt c/o of numbness right arm. extremity strength equal. VSS. pt reports sleep apnea, CPOX in place. 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 will continue to monitor.
[2017-05-06 21:16] VITALS: PULSE 84
[2017-05-06] MEDS: Insulin GLARgine 100 Unit/mL Syringe SUBQ SCH (21:19)
[2017-05-06] MEDS ORDERED: MELO-253 PO (21:33)
[2017-05-06] MEDS: Insulin LISPRO 300 Unit/3 mL Inj SUBQ SCH (22:00)
[2017-05-07] VITALS (8 sets, daily range): BP systolic 108–132; BP diastolic 72–88; PULSE 72–101; RESP 16–18; O2SAT 94–100
[2017-05-07 07:24] LABS: BASOPHILS % (AUTO) 1.3 % (0-3); EOSINOPHILS % (AUTO) 5.6 % (0-5); MONOCYTES % (AUTO) 9.7 % (4-12); Mean Corpuscular Hemoglobin 30.6 pg (27.0-35.0); Mean Corpuscular Volume 86.9 fL (81-100); NEUTROPHILS % (AUTO) 56.2 % (40-74); Platelet Count 141 bil/L (150-400)
[2017-05-07] MEDS: Insulin LISPRO 300 Unit/3 mL Inj SUBQ SCH ×4 (07:39→22:00)
[2017-05-07 07:54] LABS: TROPONIN T < 0.010 ug/L (0.0-0.011)
[2017-05-07] MEDS ORDERED: HCTZ PO SCH (08:30)
[2017-05-07] MEDS ORDERED: BENAZEPRIL PO SCH (08:30)
[2017-05-07] MEDS: Insulin GLARgine 100 Unit/mL Syringe SUBQ SCH ×2 (08:47→21:15)
--- NOTE | 2017-05-07 10:22 | DRSVH ---
[facility] [address] [place] [address] Echocardiogram Report Name: NYLA DOWNEY HStudy Date : 05/07/2017 Height: 70 in Hospital Exam Location: [facility] Weight: 257 lb Gender: Male BSA: 2.3 m2 : 1955 Age: 61 yrs BP: 131/85 mmHg Reason For Study: CVA Performed By: Lauryn Harris Referring Physician: HOSPITALIST [facility] Interpretation Summary Left ventricular wall thickness is mild-moderately increased. Apical hypertrphy is suspected, consider repeat limited echo with Definity. The ejection fraction is estimated to be 40-45%. There is mild global hypokinesis of the left ventricle. Injection of contrast documented no interatrial shunt. There is no significant valvular heart disease. Procedure: A two-dimensional transthoracic echocardiogram with color flow and Doppler was performed. The study quality was technically adequate. There is no prior echocardiogram noted for this patient. The patient was in normal sinus rhythm during the exam. Left Ventricle: The left ventricle is normal in size. Left ventricular wall thickness is mild-moderately increased. Apical hypertrphy is suspected, consider repeat limited echo with Definity. The ejection fraction is estimated to be 40-45%. There is mild global hypokinesis of the left ventricle. Assessment of diastolic parameters indicates a relaxation abnormality of the left ventricle, consistent with normal filling pressures. Right Ventricle: Borderline right ventricular enlargement. Right ventricular systolic function is mildly reduced. Atria: The left atrium is mildly dilated. The right atrium is mildly dilated. The interatrial septum is intact with no evidence for an atrial septal defect. Injection of contrast documented no interatrial shunt. Mitral Valve: The mitral valve leaflets appear borderline thickened, but open well. There is mild mitral annular calcification. There is no mitral stenosis. There is trace mitral regurgitation. Aortic Valve: There is mild aortic valve sclerosis. There is no aortic valve stenosis. No aortic regurgitation is present. Tricuspid Valve: The tricuspid valve is normal in structure and function. There is trace tricuspid regurgitation. Pulmonary artery pressures cannot be estimated because of the lack of a measurable TR jet velocity. Pulmonic Valve: The pulmonic valve is normal in structure and function. There is trace pulmonic regurgitation. Great Vessels: The aortic root is mildly dilated. The ascending aorta is mild-moderately enlarged. The pulmonary artery is normal size. The inferior vena cava was not well visualized. Pericardium/ Pleura There is no pericardial effusion. There is no pleural effusion. MMode/2D Measurements & Calculations LVIDd: 5.7 cm LA dimension RA long axis LVOT diam: 2.2 cm LVIDs: 4.5 cm AoV Openin.7 cm FS: 19.9 % LA A2 area RA area Ao root diam: 4.2 cm EPSS: 0.70 cm asc Aorta Diam: 4.3 cm IVSd: 1.4 cm : 20.6 cm LVPWd: 1.4 cm LA A4 area RA vol : 60.7 ml LA length (vol) RA : 26.2 mm2 LA vol: 83.3 ml LA vol index : 35.9 ml/m2 LVAd ap4: 30.0 cm LVAd ap2 LV nayak. diameter/BSA LVAs ap4: 21.6 cm : 25.3 cm EF(MOD-bp) (cm/m^2): 2.4 LVLs ap4: 7.0 cm LVLd ap2: 7.2 cm: 45.6 % EDV(MOD-sp2) EDV(sp2-el) LVAs ap2 : 17.1 cm LVLs ap2: 6.5 cm ESV(MOD-sp2) ESV(sp2-el) EF(MOD-sp2) LV sys. diameter/BSA (cm/m^2): 2.0 Doppler Measurements & Calculations Ao V2 max MV E max joseph MV E/A: 0.91 PA V2 max : 133.3 cm/sec : 55.0 cm/sec Pulm A Revs : 72.4 cm/sec Ao max P.1 mmHg MV A max joseph Dur: 0.10 sec PA mean PG Ao mean P.1 mmHg : 60.5 cm/sec MV A dur : 1.1 mmHg LVOT Max Joseph : 0.13 sec : 103.1 cm/sec RANDALL(I,D): 3.1 cm sev ratio: 0.78 MV dec time: 0.27 sec Ao V2 mean LV V1 max PG PA V2 mean : 97.6 cm/sec : 48.5 cm/sec Ao V2 VTI: 27.1 cm LV V1 VTI PA pr(Accel) : 21.1 cm : 26.6 mmHg RANDALL(V,D): 3.1 cm2 RANDALL indexed to BSA Pulm A Revs Dur - MV A (cm^2/m^2): 1.3 Dur: -0.03 msec Electronically signed by: Jaya Mena on Reading Physician:05/07/2017 10:22 AM
--- NOTE | 2017-05-07 10:39 | NUR ---
DIZZY/BLURRED VISION pt reports that he was just laying in bed and his vision got blurry and he felt dizzy. pt reports that it lasted for a couple of minutes. He states that he has had episodes like this in the past. reports it being like coughing really hard then getting lightheaded.
--- NOTE | 2017-05-07 12:04 | NUR ---
MRI pt transported via W/C to [facility]. telemetry called and DC'ed during procedure.
--- NOTE | 2017-05-07 13:13 | NUR ---
Evaluation completed. Please go to "Notes" then click on "Assessments and Notes" (bottom left corner of screen). Then select appropriate discipline tab on top of screen.
--- NOTE | 2017-05-07 13:53 | DRSVH ---
PROCEDURE: MRI STROKE PROTOCOL ([id number]) Pre- and post-contrast brain MRI, non-contrast brain MR angiogram, pre- and postcontrast neck MR jesenia ogram INDICATIONS: R/O CVA TECHNIQUE: Brain: Noncontrast axial T1 spin echo, axial T2 fast spin echo, sagittal and axial FLAIR, coronal T2 fast spin echo, axial gradient echo, axial diffusion and ADC through the brain. After the administr ation of contrast, axial 3D VIBE of the cranial vasculature and brain. Brain MRA: Non-contrast 3-D time of flight MR angiogram, with multiple ahaxohr-plphmqctv-wkoyzyhxbg (MIP) reformats performed. Neck MRA: Axial and sagittal TruFISP through the neck. Coronal dynamic MR angiogram during administ ration of contrast in the arterial and venous phases, with 3-dimenstional dpymugd-yqmatwbas-llgnmhisb n (MIP) reformats constructed from subtraction images. COMPARISON: None. FINDINGS: Image quality: Excellent. BRAIN: CSF spaces: Ventricles are normal in size and shape. Basal cisterns are patent. No extra-axial flu id collections. Brain: No intracranial bleeds or mass effects. Best-white matter interface is normal. Diffusion we ighted images show no acute ischemic insults. Brainstem appears normal. Normal intravascular flow v oids are present. No abnormal intracranial enhancement. Skull and face: Calvarial marrow signal is normal. Orbits appear normal. Sinuses: Sinuses and mastoids are clear. BRAIN MR ANGIOGRAM: Anterior circulation: Intracranial internal carotid arteries are normal in size and enhancement. Th e flow within the paired anterior cerebral arteries is normal and symmetric. The flow within the mid dle cerebral arteries is normal and symmetric. The anterior communicating artery is seen. No stenos es, occlusions, or aneurysms. Posterior circulation: The visualized portions of the vertebral arteries demonstrate asymmetric left vertebral dominant caliber, and join to form a normal appearing basilar artery. The flow within the posterior cerebral arteries is normal and symmetric. No stenoses, occlusions, or aneurysms. NECK MR ANGIOGRAM: Carotids: Great vessels demonstrate a conventional anatomy as they arise from the aortic arch. The origins of the common carotid arteries appear patent. The calibers and courses of both common caroti d arteries are normal. The bifurcation regions appear normal bilaterally. The internal carotid yris karina demonstrate normal course and caliber. Posterior circulation: The origins of the vertebral arteries appear patent. More superior portions of both vertebral arteries demonstrate normal course and asymmetric left vertebral dominant caliber, and join to form a normal appearing basilar artery. Miscellaneous: Subclavian arteries appear patent. Pre-contrast images through the neck show no soft tissue abnormalities. IMPRESSION: BRAIN MRI: Minimal microvascular atherosclerotic change in the deep white matter of each hemisphere. BRAIN MR ANGIOGRAM: Asymmetric normal anatomic variant dominance of the left vertebral artery. No an eurysm or stenosis found. NECK MR ANGIOGRAM: Normal internal carotid artery caliber, no sign of stenosis. Asymmetric left vert ebral artery dominance incidentally noted as a normal anatomic variant. No vertebral arterial stenos is found. The estimate of stenosis included in the report of the imaging study was calculated using the NASCET method Dictated by: Jose Lemons M.D. on 05/07/2017 at 13:45 Approved by: Jose Lemons M.D. on 05/07/2017 at 13:51
--- NOTE | 2017-05-07 14:21 | NUR ---
Evaluation completed. Please go to "Notes" then click on "Assessments and Notes" (bottom left corner of screen). Then select appropriate discipline tab on top of screen.
--- NOTE | 2017-05-07 16:08 | NUR ---
Social Work: Screening Data: Pt is a 61 y/o male admitted for CVA. Pt's PCP is DOM Armando. Pt's insurance is [employer]. EMR reviewed. Pt discussed in multidisciplinary rounds. MD states pt likely to d/c late today pending stroke work up. PT recommending outpt PT for pt, walking 400 feet. No d/c planning needs anticipated at this time. [facility]ARD will continue to follow if needs arise. Assessment: Pt who is independent at baseline, currently capable of self care. Plan: Pt will d/c home via POV when medically stable, possibly tonight per MD. [facility] GUARD will continue to follow if needs arise. NGA Meneses
--- NOTE | 2017-05-07 16:52 | NUR ---
diabetes education pt is asking that he has some diabetes education before he discharges. He would like to know more about appropriate diet and how to manage his diabetes.
[2017-05-08] VITALS (7 sets, daily range): BP systolic 127–134; BP diastolic 88–93; PULSE 78–134; RESP 16–18; O2SAT 94–96
--- NOTE | 2017-05-08 00:04 | PCM.PNMED ---
Subjective Date of Service May 07, 2017 Subjective Patient is feeling a little better. He has no new complaints. He is somewhat frustrated with his condition and would like to know what caused his condition. Exam Vital Signs Vital Sign - Last Date Time Temp Pulse Resp B/P Pulse Ox O2 Delivery O2 Flow Rate FiO2 05/07/17 21:00 37.2 77 16 124/77 100 Room Air Intake and Output 05/06/17 05/06/17 05/07/17 Cumulative From/Thru 14:59 22:59 06:59 05/06/17 15:41 - 05/07/17 05:45 Intake Total 999 ml 100 ml 1099 ml Output Total 1000 ml 1000 ml Balance 999 ml -900 ml 99 ml Intake Oral 100 ml 100 ml IV Total 999 ml 999 ml Output Urine Total 1000 ml 1000 ml # Voids 1 1 # Bowel Movements 0 0 Exam General: Patient is in no apparent distress. HEENT: Head is atraumatic and normocephalic. Eyes: Pupils are equally round and reactive to light and accommodation. Extraocular muscles are intact. Sclera are white, anicteric. Subconjunctival mucosa is pink. Ears and nose are unremarkable. Oropharynx: There is no mucosal lesions, there is no thrush, there is no pharyngitis. Neck: Is supple, there are no nodes, or masses or tenderness. Chest: Is clear to auscultation and percussion. There are no rales, rhonchi, wheezes or rubs. Heart: Rate, rhythm is regular. There is no murmur, rub or gallop. Abdomen: Good bowel sounds are present. Abdomen is obese, soft, nontender, no organomegaly or masses were appreciated. Extremities: Are symmetrical and well perfused. There is no edema, there is no cellulitis, no rash. Neurologic: There are no focal neurological deficits. Cranial nerves II through XII are intact. There are no detectable sensory or motor deficits. Gait was not tested at this time. Physical therapy will work with patient. Psychiatric: Patients mood is calm and he shows no sign of agitation. Genital: Deferred Rectal: Deferred Lab and Diagnostics Result Diagram: 05/07/17 0700 05/07/17 0700 Microbiology PROCEDURE: MRI STROKE PROTOCOL ([id number]) Pre- and post-contrast brain MRI, non-contrast brain MR angiogram, pre- and postcontrast neck MR angiogram INDICATIONS: R/O CVA TECHNIQUE: Brain: Noncontrast axial T1 spin echo, axial T2 fast spin echo, sagittal and axial FLAIR, coronal T2 fast spin echo, axial gradient echo, axial diffusion and ADC through the brain. After the administration of contrast, axial 3D VIBE of the cranial vasculature and brain. Brain MRA: Non-contrast 3-D time of flight MR angiogram, with multiple maximum- intensity-projection (MIP) reformats performed. Neck MRA: Axial and sagittal TruFISP through the neck. Coronal dynamic MR angiogram during administration of contrast in the arterial and venous phases, with 3-dimenstional qayipzn-dgenxxxji-fiqizmvkwo (MIP) reformats constructed from subtraction images. COMPARISON: None. FINDINGS: Image quality: Excellent. BRAIN: CSF spaces: Ventricles are normal in size and shape. Basal cisterns are patent. No extra-axial fluid collections. Brain: No intracranial bleeds or mass effects. Best-white matter interface is normal. Diffusion weighted images show no acute ischemic insults. Brainstem appears normal. Normal intravascular flow voids are present. No abnormal intracranial enhancement. Skull and face: Calvarial marrow signal is normal. Orbits appear normal. Sinuses: Sinuses and mastoids are clear. BRAIN MR ANGIOGRAM: Anterior circulation: Intracranial internal carotid arteries are normal in size and enhancement. The flow within the paired anterior cerebral arteries is normal and symmetric. The flow within the middle cerebral arteries is normal and symmetric. The anterior communicating artery is seen. No stenoses, occlusions, or aneurysms. Posterior circulation: The visualized portions of the vertebral arteries demonstrate asymmetric left vertebral dominant caliber, and join to form a normal appearing basilar artery. The flow within the posterior cerebral arteries is normal and symmetric. No stenoses, occlusions, or aneurysms. NECK MR ANGIOGRAM: Carotids: Great vessels demonstrate a conventional anatomy as they arise from the aortic arch. The origins of the common carotid arteries appear patent. The calibers and courses of both common carotid arteries are normal. The bifurcation regions appear normal bilaterally. The internal carotid arteries demonstrate normal course and caliber. Posterior circulation: The origins of the vertebral arteries appear patent. More superior portions of both vertebral arteries demonstrate normal course and asymmetric left vertebral dominant caliber, and join to form a normal appearing basilar artery. Miscellaneous: Subclavian arteries appear patent. Pre-contrast images through the neck show no soft tissue abnormalities. IMPRESSION: BRAIN MRI: Minimal microvascular atherosclerotic change in the deep white matter of each hemisphere. BRAIN MR ANGIOGRAM: Asymmetric normal anatomic variant dominance of the left vertebral artery. No aneurysm or stenosis found. NECK MR ANGIOGRAM: Normal internal carotid artery caliber, no sign of stenosis. Asymmetric left vertebral artery dominance incidentally noted as a normal anatomic variant. No vertebral arterial stenosis found. The estimate of stenosis included in the report of the imaging study was calculated using the NASCET method Dictated by: Jose Lemons M.D. on 05/07/2017 at 13:45 Approved by: Jose Lemons M.D. on 05/07/2017 at 13:51 X-Rays, CTs and MRIs Brain CT 1. No acute intracranial disease process within the limitations caused by motion artifact.. 2. Findings telephoned to Dr. Shun Fitzgerald on 05/06/17 at 1533 hrs. This study fulfills neurological imaging criteria for inclusion or exclusion of acute stroke therapies based on available published neurological imaging guidelines. Dictated by: Kassandra Mcgee MD, PhD on 05/06/2017 at 15:30 12-lead ECG Normal sinus rhythm heart rate 97 Cardiac Echo Impressions Echocardiogram Report Name: NYLA DOWNEY HStudy Date : 05/07/2017 Height: 70 in Hospital Exam Location: [facility] Weight: 257 lb Gender: Male BSA: 2.3 m2 : 1955 Age: 61 yrs BP: 131/85 mmHg Reason For Study: CVA Performed By: Lauryn Harris Referring Physician: HOSPITALIST [facility] Interpretation Summary Left ventricular wall thickness is mild-moderately increased. Apical hypertrphy is suspected, consider repeat limited echo with Definity. The ejection fraction is estimated to be 40-45%. There is mild global hypokinesis of the left ventricle. Injection of contrast documented no interatrial shunt. There is no significant valvular heart disease. Assessment & Plan 61-year-old male with history of alcohol abuse, hypertension, and diabetes who presented due to an interesting constellation of symptoms consistent with either a TIA, conversion disorder, and/or panic attack, with a racing heartbeat and mild chest pain. TIA/stroke; present admission; ongoing -Constellation of symptoms are somewhat confusing, however he demonstrates findings on exam -Has also had recurrence of these episodes which may hint at a psychological etiology -CT brain was negative for bleed -MRI stroke protocol -Atorvastatin 10 mg daily -Aspirin 325 mg daily -Lipid panel and A1c -Permissive hypertension; control>220 with labetalol -Plavix given 1 -Echo Chest pain, present on admission; ongoing -During this attack patient describes mild chest pain -Due to comorbidities will order stress test -Initial troponin negative, will order for morning Type 2 diabetes; present admission; ongoing -Continue home glargine 10 units subcutaneous twice a day -Low correctional -A1c ordered History of Alcohol abuse with elevated transaminases -Patient sober 8 weeks -No CIWA ordered -Hepatitis panel ordered -Recommend ultrasound outpatient GERD -Famotidine Hypertension -Continue Benazepril/HCTZ Gout -Continue allopurinol Disposition: Patient has been admitted to the general medical floor under observation Full code GI Prophylaxis: H2 oswald VTE Mechanical Devices: Venous Foot Pump Resuscitation Status: CPR: Attempt Resuscitation Delon Ferrara MD May 08, 2017 00:04
[2017-05-08 03:11] LABS: Hepatitis A Antibody IgM Negative (Negative); Hepatitis B Core Antibody IgM Negative (Negative)
--- NOTE | 2017-05-08 04:35 | NUR ---
Transfer Pt. was transferred to [facility] [place] for further observation. He reported to the ED with R/O CVA but CT showed no bleed. He is still here because after evaluation he still had unresolved symptoms ie. unequal learning program manager. VSS, Telemetry showing SR w/ PVC's. Most likely will discharge today.
[2017-05-08 06:19] LABS: BASOPHILS % (AUTO) 1.2 % (0-3); EOSINOPHILS % (AUTO) 5.8 % (0-5); MONOCYTES % (AUTO) 8.3 % (4-12); Mean Corpuscular Hemoglobin 30.5 pg (27.0-35.0); Mean Corpuscular Volume 86.4 fL (81-100); NEUTROPHILS % (AUTO) 56.6 % (40-74); Platelet Count 160 bil/L (150-400)
[2017-05-08 06:37] LABS: Magnesium 1.5 mg/dL (1.6-2.6)
[2017-05-08] MEDS: Insulin LISPRO 300 Unit/3 mL Inj SUBQ SCH ×3 (08:00→16:54)
[2017-05-08] MEDS: Insulin GLARgine 100 Unit/mL Syringe SUBQ SCH ×2 (08:42→19:55)
[2017-05-08] MEDS ORDERED: Magnesium Sulf 2 Gm/50mL Water 2 GM in IV Premix 1 EACH IV ONE ×2 (09:00→15:05)
[2017-05-08] MEDS ORDERED: Magnesium Sulf 4 Gm/100 mL H2O 4 GM in IV Premix 1 EACH IV ONE (09:00)
--- NOTE | 2017-05-08 18:51 | NUR ---
Tele/activity Pt. reporting that he felt a little bit of numbness to his right leg, traveling up into his thigh. He has been up in room and in gomes, tolerating activity well with a steady gait. States that the numbness in his leg has resolved since then. 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 Tele reading SR 80s-90s, IVCD with occasional PVCs. Report given to PAPI Zaman to continue care.
--- NOTE | 2017-05-08 19:04 | PCM.DIMED ---
Discharge Instructions Date of Service May 08, 2017 Dates of Hospitalization May 06, 2017 at 19:05 Discharge Diagnosis Discharge Diagnosis Cardiomyopathy with Dizziness Diet Discharge Diet: Heart Healthy Activity Discharge Activity: No restrictions (The patient may return to his usual activities gradually as tolerated.) Call your provider Call your provider for: Fever or Chills, Shortness of breath, Bleeding, Chest pain, Vomitting, Excessive diarrhea, Weakness (unilateral), Other Patient Instructions Follow-up Provider: Sachin Van Follow-up with PCP in: 1 week Provider: Leona Diehl MD Follow-up in: 2 weeks Delon Ferrara MD May 08, 2017 19:04
[2017-05-08] MEDS ORDERED: Thiamine PO (19:19)
[2017-05-08] MEDS ORDERED: Therapeutic Multivit/Minerals PO (19:19)
[2017-05-08] MEDS ORDERED: ASPI81TA3 PO (19:19)
[2017-05-08] MEDS ORDERED: FOLI1TAB18 PO (19:19)
[2017-05-08] MEDS ORDERED: CARV3.12 PO (19:19)
--- NOTE | 2017-05-08 20:21 | NUR ---
Discharge Received patient at shift change with discharge orders. Assessed pt, vitals stable, BS 182 - Lantus given. Evening meds, and per physician B12 shot, and vitamins given. Discharge papers discussed, questions answered, signed. IV d/c intact. Pt left with steady gait with his and belongings accounted for. Pt already has followup appt with primary care CLASSROOM ASSISTANT scheduled, and will schedule his appt with [facility] for 2 weeks out. Addendum: 05/08/17 at 2037 by TEREZA AKERS RN Discharge time - 20:18
--- NOTE | 2017-05-09 01:06 | PCM.DC.MED ---
Discharge Summary Date of Service May 08, 2017 Dates of Hospitalization Date of Hospital Admission May 06, 2017 at 19:05 Date of Discharge: May 08, 2017 Providers: Admitting Physician: Santiago Ferreira Primary Care Physician: Sachin Van Attending Physician: Delon Ferrara MD Diagnosis at Time of Discharge Diagnosis at Time of Discharge Cardiomyopathy with Dizziness Procedures XRay, CTs & MRIs Brain CT 1. No acute intracranial disease process within the limitations caused by motion artifact.. 2. Findings telephoned to Dr. Shun Fitzgerald on 05/06/17 at 1533 hrs. This study fulfills neurological imaging criteria for inclusion or exclusion of acute stroke therapies based on available published neurological imaging guidelines. Dictated by: Kassandra Mcgee MD, PhD on 05/06/2017 at 15:30 ECG 12 Lead Normal sinus rhythm heart rate 97 Cardiac Echo Impression Echocardiogram Report Name: NYLA DOWNEY HStudy Date : 05/07/2017 Height: 70 in Hospital Exam Location: [facility] Weight: 257 lb Gender: Male BSA: 2.3 m2 : 1955 Age: 61 yrs BP: 131/85 mmHg Reason For Study: CVA Performed By: Lauryn Harris Referring Physician: HOSPITALIST [facility] Interpretation Summary Left ventricular wall thickness is mild-moderately increased. Apical hypertrphy is suspected, consider repeat limited echo with Definity. The ejection fraction is estimated to be 40-45%. There is mild global hypokinesis of the left ventricle. Injection of contrast documented no interatrial shunt. There is no significant valvular heart disease. Brief History 61-year-old male with history of alcoholism, diabetes, and untreated sleep apnea presents to the emergency department due to acute onset of right sided numbness, aphasia confusion, and lightheadedness. The patient states that this started at 12:00 today while he was at work and also states that it began with numbness in both of his upper limbs before localizing in the right, and also describes associated diaphoresis, head pressure and a racing heartbeat with mild chest pressure. Patient states that he has had multiple episodes like this over the last few years but this one was by far the worst. During this episode he had a sense of impending doom and states that his personal life he has under more stress than he has ever been under. Patients also states that couple weeks ago she had blurry vision and his had intermittent episodes of cloudy mentation but all of these seem to be connected with a blood glucose of greater than 450. Over the last couple days he says his blood glucoses been much better but is unable to give a number. Patient is a former alcoholic but has been sober for 8 weeks without reports of seizure activity. This alcoholism is also affected his personal relationships this family. Emergency room CT was negative for bleed. Patient was given aspirin and a liter of normal saline. Labs are relatively unremarkable except for mild elevation in transaminases and glucose of 122. On examining the ED the patient' s NIH score of 1 with decreased sensation on the right compared to left face, upper extremity. Patient is not a candidate for TPA due to symptom severity not meeting threshold. Hospital Course 61-year-old male with history of alcohol abuse, hypertension, and diabetes who presented due to an interesting constellation of symptoms consistent with either a TIA, conversion disorder, and/or panic attack, with a racing heartbeat and mild chest pain. The patient was brought in under observation to the hospitalist service for further evaluation and treatment. TIA/stroke; present admission; resolved and I suspect symptoms were related to previous heavy drinking which he quit approximately 2 months ago. Patient may have thiamine, folic acid and/or by vitamin B12 deficiency. We will replace all 3. -Constellation of symptoms are somewhat confusing, however he demonstrates findings on exam -Has also had recurrence of these episodes which may hint at a psychological etiology -CT brain was negative for bleed -MRI stroke protocol was unremarkable -Atorvastatin 10 mg daily -Aspirin 325 mg daily -Lipid panel and A1c -Permissive hypertension; control>220 with labetalol -Plavix given 1 -Echo Chest pain, present on admission; ongoing -During this attack patient describes mild chest pain. Acute coronary syndrome has been ruled out. Patient has global hypokinesis and suspect this may be due to "holiday heart". His patient-controlled drinking heavily for years. He just quit 2 months ago. -We will continue the benzoyl control hydrochlorothiazide combination and add carvedilol. -Commended patient follow-up with cardiology as an outpatient. He is are interested in doing just that. -Due to comorbidities will order stress test -Initial troponin negative, will order for morning Type 2 diabetes; present admission; ongoing -Continue home glargine 10 units subcutaneous twice a day -Low correctional -A1c ordered History of Alcohol abuse with elevated transaminases -Patient sober 8 weeks -No CIWA ordered -Hepatitis panel ordered -Recommend ultrasound outpatient GERD -Famotidine Hypertension -Continue Benazepril/HCTZ - We will add carvedilol 3.125 mg by mouth twice a day to start Gout -Continue allopurinol Disposition: Patient will be discharged home today in the care of his . They are both agreeable with this plan. Full code Exam Vital Signs (Last) Date Time Temp Pulse Resp B/P Pulse Ox O2 Delivery O2 Flow Rate FiO2 05/08/17 19:55 36.9 86 18 131/90 96 Room Air Exam General: Patient is in no apparent distress. HEENT: Head is atraumatic and normocephalic. Eyes: Pupils are equally round and reactive to light and accommodation. Extraocular muscles are intact. Sclera are white, anicteric. Subconjunctival mucosa is pink. Ears and nose are unremarkable. Oropharynx: There is no mucosal lesions, there is no thrush, there is no pharyngitis. Neck: Is supple, there are no nodes, or masses or tenderness. Chest: Is clear to auscultation and percussion. There are no rales, rhonchi, wheezes or rubs. Heart: Rate, rhythm is regular. There is no murmur, rub or gallop. Abdomen: Good bowel sounds are present. Abdomen is obese, soft, nontender, no organomegaly or masses were appreciated. Extremities: Are symmetrical and well perfused. There is no edema, there is no cellulitis, no rash. Neurologic: There are no focal neurological deficits. Cranial nerves II through XII are intact. There are no detectable sensory or motor deficits. Gait was not tested at this time. Physical therapy will work with patient. Psychiatric: Patients mood is calm and he shows no sign of agitation. Genital: Deferred Rectal: Deferred Test 05/06/17 15:25 05/06/17 17:26 05/06/17 22:07 05/06/17 23:00 Prothrombin Time 10.0sec (8.1-12.5) Prothromb Time International Ratio 0.94ratio Activated Partial Thromboplast Time 27.0sec (22.8-33.0) Hemoglobin A1c 9.0% (4.8-5.6) Triglycerides Level 225mg/dL (0-149) Cholesterol Level 140mg/dL (100-199) LDL Cholesterol, Calculated 65.000mg/dL (0-99) VLDL Cholesterol 45.000mg/dL HDL Cholesterol 30mg/dL (>39) Cholesterol/HDL Ratio 4.67 (0.0-4.4) Hold Jacob Top Tube Received (Received) Alcohols < 10mg/dL (0-10) Urine Color Yellow (YELLOW) Urine Appearance Clear (CLEAR,HAZY) Urine pH 6.0 (5.0-8.0) Urine Specific [place] 1.010 (1.003-1.035) Urine Protein Negativemg/dL (NEG,TRACE) Urine Glucose (UA) Negativemg/dL (NEGATIVE) Urine Ketones Negativemg/dL (NEGATIVE) Urine Occult Blood Negative (NEGATIVE) Urine Nitrite Negative (NEGATIVE) Urine Bilirubin Negative (NEGATIVE) Urine Urobilinogen 1.0mg/dL (NORMAL) Urine Leukocyte Esterase Negative (NEGATIVE) Urine RBC N/hpf (0-2) Urine WBC N/hpf (0-5) Urine Epithelial Cells None/hpf (NONE-MOD) Urine Crystals None seen (NONE SEEN) Urine Bacteria Few/hpf (NONE-FEW) Urine Hyaline Casts None/lpf (NONE) Urine Granular Casts None seen (NONE SEEN) Urine Waxy Casts None seen (NONE SEEN) Urine Red Blood Cell Casts None seen (NONE SEEN) Urine White Blood Cell Casts None seen (NONE SEEN) Urine Mucus None seen (None Seen) Urine Trichomonas None seen (NONE SEEN) Urine Yeast None (NONE SEEN) Urinalysis Comment None Urine Culture Reflexed Not indicated Hepatitis A IgM Antibody Negative (Negative) Hepatitis B Surface Antigen Negative (Negative) Hepatitis B Core IgM Antibody Negative (Negative) Hepatitis C Antibody <0.1s/co ratio (0.0-0.9) Hepatitis C Comment Comment (.) Urine Opiates Screen Negative Urine Methadone Screen Negative Urine Barbiturates Screen Negative Urine Amphetamines Screen Negative Urine Benzodiazepines Screen Negative Urine Cocaine Metabolite Screen Negative Urine Cannabinoids Screen Negative Test 05/07/17 07:00 05/08/17 06:00 Troponin T < 0.010ug/L (0.0-0.011) White Blood Count 5.7th/mm3 (3.8-10.1) Red Blood Count 4.85mil/mm3 (4.40-5.80) Hemoglobin 14.8g/dL (13.8-17.2) Hematocrit 41.9% (41.0-50.0) Mean Corpuscular Volume 86.4fL (81-100) Mean Corpuscular Hemoglobin 30.5pg (27.0-35.0) Mean Corpuscular Hemoglobin Concent 35.3% (32.0-37.0) Red Cell Distribution Width 13.1% (12.3-15.4) Platelet Count 160bil/L (150-400) Neutrophils (%) (Auto) 56.6% (40-74) Lymphocytes (%) (Auto) 27.9% (14-46) Monocytes (%) (Auto) 8.3% (4-12) Eosinophils (%) (Auto) 5.8% (0-5) Basophils (%) (Auto) 1.2% (0-3) Sodium Level 141mEq/L (134-144) Potassium Level 3.9mEq/L (3.5-5.2) Chloride Level 104mEq/L (97-108) Carbon Dioxide Level 21mmol/L (18-29) Blood Urea Nitrogen 18mg/dL (6-24) Creatinine 0.96mg/dL (0.76-1.27) Estimat Glomerular Filtration Rate 85mL/min (>59) Glucose Level 142mg/dL (60-99) Calcium Level 9.8mg/dL (8.5-10.1) Magnesium Level 1.5mg/dL (1.6-2.6) Total Bilirubin 0.5mg/dL (0.0-1.2) Aspartate Amino Transf (AST/SGOT) 49U/L (0-50) Alanine Aminotransferase (ALT/SGPT) 56U/L (0-44) Alkaline Phosphatase 63U/L (25-160) Total Protein 7.6g/dL (6.4-8.4) Albumin 4.2g/dL (3.4-5.0) Microbiology Results PROCEDURE: MRI STROKE PROTOCOL ([id number]) Pre- and post-contrast brain MRI, non-contrast brain MR angiogram, pre- and postcontrast neck MR angiogram INDICATIONS: R/O CVA TECHNIQUE: Brain: Noncontrast axial T1 spin echo, axial T2 fast spin echo, sagittal and axial FLAIR, coronal T2 fast spin echo, axial gradient echo, axial diffusion and ADC through the brain. After the administration of contrast, axial 3D VIBE of the cranial vasculature and brain. Brain MRA: Non-contrast 3-D time of flight MR angiogram, with multiple maximum- intensity-projection (MIP) reformats performed. Neck MRA: Axial and sagittal TruFISP through the neck. Coronal dynamic MR angiogram during administration of contrast in the arterial and venous phases, with 3-dimenstional mykqrfy-txgsbpccn-yeorzourug (MIP) reformats constructed from subtraction images. COMPARISON: None. FINDINGS: Image quality: Excellent. BRAIN: CSF spaces: Ventricles are normal in size and shape. Basal cisterns are patent. No extra-axial fluid collections. Brain: No intracranial bleeds or mass effects. Best-white matter interface is normal. Diffusion weighted images show no acute ischemic insults. Brainstem appears normal. Normal intravascular flow voids are present. No abnormal intracranial enhancement. Skull and face: Calvarial marrow signal is normal. Orbits appear normal. Sinuses: Sinuses and mastoids are clear. BRAIN MR ANGIOGRAM: Anterior circulation: Intracranial internal carotid arteries are normal in size and enhancement. The flow within the paired anterior cerebral arteries is normal and symmetric. The flow within the middle cerebral arteries is normal and symmetric. The anterior communicating artery is seen. No stenoses, occlusions, or aneurysms. Posterior circulation: The visualized portions of the vertebral arteries demonstrate asymmetric left vertebral dominant caliber, and join to form a normal appearing basilar artery. The flow within the posterior cerebral arteries is normal and symmetric. No stenoses, occlusions, or aneurysms. NECK MR ANGIOGRAM: Carotids: Great vessels demonstrate a conventional anatomy as they arise from the aortic arch. The origins of the common carotid arteries appear patent. The calibers and courses of both common carotid arteries are normal. The bifurcation regions appear normal bilaterally. The internal carotid arteries demonstrate normal course and caliber. Posterior circulation: The origins of the vertebral arteries appear patent. More superior portions of both vertebral arteries demonstrate normal course and asymmetric left vertebral dominant caliber, and join to form a normal appearing basilar artery. Miscellaneous: Subclavian arteries appear patent. Pre-contrast images through the neck show no soft tissue abnormalities. IMPRESSION: BRAIN MRI: Minimal microvascular atherosclerotic change in the deep white matter of each hemisphere. BRAIN MR ANGIOGRAM: Asymmetric normal anatomic variant dominance of the left vertebral artery. No aneurysm or stenosis found. NECK MR ANGIOGRAM: Normal internal carotid artery caliber, no sign of stenosis. Asymmetric left vertebral artery dominance incidentally noted as a normal anatomic variant. No vertebral arterial stenosis found. The estimate of stenosis included in the report of the imaging study was calculated using the NASCET method Dictated by: Jose Lemons M.D. on 05/07/2017 at 13:45 Approved by: Jose Lemons M.D. on 05/07/2017 at 13:51 Discharge Medications Discharge Medications ([Therapeutic Multivit/Minerals]) 1 TABLET TABLET 1 TABLET PO DAILY Prescribed by: ELVER FERRARA MD ([Thiamine]) 100 MG TABLET 100 MG PO DAILY Prescribed by: ELVER FERRARA MD Allopurinol (Allopurinol) 300 Mg Tablet 300 MG PO DAILY (Reported) Aspirin Chew (Aspirin Chew) 81 Mg Chew 324 MG PO DAILY Prescribed by: ELVER FERRARA MD Benazepril / HCTZ 20-25 mg (Benazepril / HCTZ 20-25 mg) 1 Each Tablet 2 TAB PO DAILY (Reported) Carvedilol (Coreg) 3.125 Mg Tablet 3.125 MG PO BID Prescribed by: ELVER FERRARA MD Fenofibrate Nanocrystallized (Fenofibrate) 145 Mg Tablet 145 MG PO DAILY ( Reported) Folic Acid (Folic Acid) 1 Mg Tablet 1 MG PO DAILY Prescribed by: ELVER FERRARA MD Glyburide (Glyburide) 2.5 Mg Tablet 2.5 MG PO DAILY (Reported) Insulin Glargine (Lantus U100 Insulin Vial) 100 Unit/Ml Vial 10 UNIT SUBQ BID ( Reported) Meloxicam (Meloxicam) 15 Mg Tablet 15 MG PO DAILY (Reported) Omeprazole (Omeprazole) 40 Mg Capsule.dr 40 MG PO BID (Reported) Followup Plan Disposition: The patient will be discharged home in the care of his . Discharge Diet: Heart Healthy Discharge Activity: No restrictions (The patient may return to his usual activities gradually as tolerated.) Follow-up Provider: Sachin Van Follow-up with PCP in: 1 week Provider: Leona Diehl MD Follow-up in: 2 weeks Time spent Time spent on discharging this patient was greater than 35 minutes, over half of which was involved in counseling and coordination of care. Delon Ferrara MD May 09, 2017 01:06
== END 2017-05-08 20:18 | disposition home or self-care (01) ==
LOC: SED 15:03 → MPC 19:05 → MOC 05-07 20:13
PROVIDERS: ADMIT Internal Medicine; ATTEND Internal Medicine Infectious Disease
DX: I42.9 Cardiomyopathy, unspecified (principal); R42 Dizziness and giddiness; G45.9 Transient cerebral ischemic attack, unspecified; E11.9 Type 2 diabetes mellitus without complications; I10 Essential (primary) hypertension; F10.21 Alcohol dependence, in remission; R07.9 Chest pain, unspecified; G47.30 Sleep apnea, unspecified; K21.9 Gastro-esophageal reflux disease without esophagitis; E78.00 Pure hypercholesterolemia, unspecified; M47.816 Spondylosis without myelopathy or radiculopathy, lumbar region; M10.9 Gout, unspecified; Z79.4 Long term (current) use of insulin; Z79.84 Long term (current) use of oral hypoglycemic drugs; Z79.82 Long term (current) use of aspirin
CPT/HCPCS: 36415; 70450; 70549; 70553; 80053; 80061; 81000; 82375; 82803; 82948; 83036; 83735; 84484; 85025; 85610; 85730; 86705; 86709; 87340; 87341; 92526; 93005; 96125; 96361; 96372; 96374; 96376; 97162; 97166; 99285; A9585; C8929; G0378; G0472; G0480; G9168; G9169; J1815; J3420; J3475; J7030

== ENCOUNTER 2017-06-08 08:08 | Observation (INO) | payer OTHER ==
[2017-06-08] VITALS (14 sets, daily range): BP systolic 62–142; BP diastolic 33–84; PULSE 81–98; RESP 18–31; O2SAT 94–98
[~2017-06-08] VITALS: Ht 177.8 cm; Wt 114.1 kg
[~2017-06-08 08:08] MED LIST changes: +ASPI81TA3 PO; +CARV3.12 PO; -DISU250T5 PO; +FOLI1TAB18 PO; +INSU100V7 SUBQ; +Therapeutic Multivit/Minerals PO; +Thiamine PO
[2017-06-08 08:34] LABS: BASOPHILS % (AUTO) 0.2 % (0-3); EOSINOPHILS % (AUTO) 2.1 % (0-5); MONOCYTES % (AUTO) 8.4 % (4-12); Mean Corpuscular Hemoglobin 30.4 pg (27.0-35.0); Mean Corpuscular Volume 87.9 fL (81-100); NEUTROPHILS % (AUTO) 79.3 % (40-74); Platelet Count 157 bil/L (150-400)
--- NOTE | 2017-06-08 08:40 | ED.REPORT ---
HPI-General Illness Date of Service Jun 08, 2017 ED Provider: Jomar Fitzgerald MD Patient is a 61 year old male with a hx of TIA, EtOH abuse, HTN, hyperlipidemia , and DM who presents to the ED complaining of mid-sternal chest pain onset 2100 last night while relaxing at home. His pain is constant, sharp, stabbing, non-exertional, a 9/10 in severity, and is worse with inspiration. Associated symptoms include shoulder "tightness". He denies SOB, nausea, vomiting, diaphoresis, fevers, chills, abdominal pain, diarrhea, constipation, headache, vision changes, numbness, focal weakness, recent falls, or any other symptoms. He recently had a period of 8 hour immobility while driving [place] the [place]. Patient took 81 mg ASA at 0700. He has not been drinking alcohol. He has a stress test scheduled for July. Nursing Notes Stated Complaint: CHEST PAIN Chief Complaint: Chest Pain Nursing Notes Reviewed: Yes Allergies: Coded Allergies: lisinopril (Verified Allergy, Intermediate, Swelling of lips, 04/22/17) candesartan (Verified Allergy, Unknown, swollen lips, 04/22/17) Bumble Bee (Verified Adverse Reaction, Severe, anaphylactic , 05/06/17) Uncoded Allergies: cilexetil (Allergy, Unknown, 06/08/17) Scheduled Allopurinol (Allopurinol) 300 Mg Tablet 300 MG PO DAILY Aspirin (Aspirin) 81 Mg Tablet 81 MG PO DAILY Benazepril (Benazepril) 20 Mg Tablet 20 MG PO DAILY Carvedilol (Coreg) 3.125 Mg Tablet 3.125 MG PO BID Fenofibrate Nanocrystallized (Fenofibrate) 145 Mg Tablet 145 MG PO DAILY Folic Acid (Folic Acid) 1 Mg Tablet 1 MG PO DAILY Glyburide (Glyburide) 2.5 Mg Tablet 2.5 MG PO BID Insulin Glargine (Lantus U100 Insulin Vial) 100 Unit/Ml Vial 10 UNIT SUBQ HS Multivitamin (Once Daily) 1 Each Tablet 1 EACH PO DAILY Thiamine Mononitrate (Vitamin B-1) 100 Mg Tablet 100 MG PO DAILY General Time Seen by MD: 08:36 Chief Complaint Chest pain Hx Obtained From: Patient Arrived By: Walk-in Sudden in Onset?: Yes Onset Occurred: Yesterday Symptom Duration: Since onset Location: : Chest Quality: Sharp, Stabbing Radiation: : Does not radiate Severity: Current: Pain level 9 out of 10 Severity: Maximum: Pain level 9 out of 10 Pertinent Negative: Pt denies other symptoms Exacerbated by: Standing up (exertion ) Context Related History: Reports Diabetes mellitus Recent Healthcare: Recent hospitalization Past Medical History Past Medical History Notes: Denies pertinent family hx Past Medical History Type 2 diabetes GERD Hypertension hyperlipidemia Alcohol abuse Hx pneumonia Hx ulcer Mild arthritis low back TIA monoclonal gammopathy Past Surgical History None reported Smoking History Unknown if Ever Smoker Social History Alcohol Use: In recovery Ambulatory Status Independent Review of Systems +shoulders feel "tight" -recent falls Full Review of Systems Constitutional: Denies: Chills, Fever Eyes: Denies: Blurred bilateral Ears / Nose / Throat: Denies: Sore throat Respiratory: Denies: Shortness of breath Cardiovascular: Reports: Chest pain GI: Denies: Abdominal pain, Constipation, Diarrhea, Nausea, Vomiting Male: Denies Dysuria Musculoskeletal: Denies: Back pain Hematologic: Denies Bruising Allergy / Immune: Denies: Itching Neurologic: Denies: Focal weakness, Headache, Numbness, Vision change Psychiatric: Denies: Change mental status Complete sys rev & neg: except as marked. Physical Exam Nursing note and vitals reviewed. Constitutional: Well-developed, well-nourished. Not diaphoretic. Head: Normocephalic and atraumatic. Mouth/Throat: Oropharynx is clear and moist. No oropharyngeal exudate. Eyes: EOM are normal. Pupils are round, and reactive to light. Left pupil is larger than right which patient reports is baseline. Neck: Supple, no tracheal deviation. Cardiovascular: Normal rate, regular rhythm. Equal and intact distal pulses throughout. Pulmonary/Chest: Effort normal and breath sounds normal. No respiratory distress. Abdominal: Soft. No distension. Mild epigastric tenderness. No rebound or guarding. Musculoskeletal: Range of motion grossly intact, moving all extremities. No edema or tenderness appreciated. Neurological: AOx3. Grossly nonfocal exam. Strength and sensation intact and equal to bilateral upper and lower extremities. Skin: Warm and dry, no rashes or pallor appreciated. Psychiatric: Appropriate mood and affect. Behavior appears normal. Vital Signs Vital Signs Date Time Temp Pulse Resp B/P Pulse Ox O2 Delivery O2 Flow Rate FiO2 06/08/17 13:54 98 24 111/67 97 Room Air 06/08/17 12:01 90 31 130/65 97 Room Air 06/08/17 11:00 86 27 114/64 97 Room Air 06/08/17 10:30 81 24 62/33 94 Room Air 06/08/17 10:00 91 26 98 Room Air 06/08/17 09:30 87 27 96 Room Air 06/08/17 09:00 87 27 95 Room Air 06/08/17 08:30 89 26 127/71 95 Room Air 06/08/17 08:20 36.8 96 23 142/84 95 Room Air Interpretation & Diagnostics Lab Results Interpretation Result Diagram: 06/08/17 0820 06/08/17 0820 Test 06/08/17 08:20 06/08/17 14:25 White Blood Count 8.8th/mm3 (3.8-10.1) Red Blood Count 4.73mil/mm3 (4.40-5.80) Hemoglobin 14.4g/dL (13.8-17.2) Hematocrit 41.6% (41.0-50.0) Mean Corpuscular Volume 87.9fL (81-100) Mean Corpuscular Hemoglobin 30.4pg (27.0-35.0) Mean Corpuscular Hemoglobin Concent 34.6% (32.0-37.0) Red Cell Distribution Width 13.8% (12.3-15.4) Platelet Count 157bil/L (150-400) Neutrophils (%) (Auto) 79.3% (40-74) Lymphocytes (%) (Auto) 9.8% (14-46) Monocytes (%) (Auto) 8.4% (4-12) Eosinophils (%) (Auto) 2.1% (0-5) Basophils (%) (Auto) 0.2% (0-3) D-Dimer 4.03mg/L FEU (<0.50) Sodium Level 137mEq/L (134-144) Potassium Level 4.3mEq/L (3.5-5.2) Chloride Level 102mEq/L (97-108) Carbon Dioxide Level 20mmol/L (18-29) Blood Urea Nitrogen 19mg/dL (6-24) Creatinine 1.00mg/dL (0.76-1.27) Estimat Glomerular Filtration Rate 81mL/min (>59) Glucose Level 254mg/dL (60-99) Calcium Level 9.7mg/dL (8.5-10.1) Total Bilirubin 0.7mg/dL (0.0-1.2) Aspartate Amino Transf (AST/SGOT) 26U/L (0-50) Alanine Aminotransferase (ALT/SGPT) 25U/L (0-44) Alkaline Phosphatase 55U/L (25-160) Total Protein 7.7g/dL (6.4-8.4) Albumin 4.4g/dL (3.4-5.0) Lipase 52U/L (13-60) Hold Jacob Top Tube Received (Received) ECG Interpretation ECG Interpretation: Sinus rate 89 Time: 08:23 Interpreted by: ED physician X-Ray Chest Interpretation Chest Xray Interpretation: IMPRESSION: Negative chest. No acute cardiopulmonary process is suspected. Dictated by: Aime Clark M.D. on 06/08/2017 at 8:12 Approved by: Aime Clark M.D. on 06/08/2017 at 8:12 View: AP & lat Interpretation / Wet Read by: Interpret - Radiologist CT Chest Interpretation IMPRESSION: 1. No central pulmonary embolism. Several small very distal branches of the right pulmonary artery in the right base demonstrate heterogeneous opacification. This is suspected to be artifactual. However, small area of embolus cannot be definitively excluded. Dictated by: Sylvie Hendricks M.D. on 06/08/2017 at 12:09 Approved by: Sylvie Hendricks M.D. on 06/08/2017 at 12:12 Study type: CT pulm angiogram Interpretation / Wet Read by: Interpret - Radiologist Re-Eval/Medical Decision Med Decision/Clinical Course In summary, 61-year-old male who presents to the ED for evaluation of nonexertional midsternal chest pain. Differential includes ACS, PE, PTX, aortic dissection, myocarditis/pericarditis, abdominal etiology such as cholecystitis, MSK pain. Pain has been constant since onset; initial troponin negative. HEART score of 4. EKG demonstrates sinus rhythm with no acute ischemic changes. Given the patient's pleuritic symptoms and elevated d-dimer a CT PE study was obtained; please see read above - no evidence of a large central pulmonary embolism, though there is some opacification of some very distal branches of the right pulmonary artery that are thought to be consistent with artifact, however a small embolus cannot be definitively excluded. No convincing evidence for dissection and not consistent with exam or clinical presentation - pain not described as tearing through to the back, CXR w/ no evidence of widened mediastinum, normal neuro exam, and equal pulses to bilateral upper and lower extremities; aortic dissection seems very unlikely. No evidence of pneumothorax on examination or CT scan. Neither clinical presentation, exam, or EKG seem c/w pericarditis or myocarditis. No abdominal pain or tenderness. Rest of labs reviewed, unremarkable, including CBC and CMP grossly within normal limits with the exception of a glucose of 254. Patient took aspirin prior to arrival. He was given morphine and nitroglycerin here in the ED with some relief of symptoms. An echocardiogram recently demonstrated a left ventricular ejection fraction of 40-45% with mild global hypokinesis of the left ventricle. I am concerned about his risk for acute coronary syndrome. Patient would likely benefit from a stress test for risk stratification - discussed this with cardiology as per below. Plan admission for further management and evaluation of his chest pain, stress test, possible repeat echo. Patient agreeable to the plan as stated, no further questions. Time of Eval: 13:12 Re-Evaluation/Progress Note: Rechecked pt. Discussed imaging and lab results. Discussed plan for admission. Patient understands and agrees with plan. All questions addressed at this time. Consultation #1: Referral / Consult Name: Asha Echols MD Consulted With: Cardiology Call Returned at: 14:17 Note: Discussed pt's case. Agrees to consult. Consultation #2: Referral / Consult Name: Santiago Ferreira Consulted With: Hospitalist Call Returned at: 14:37 Chisel Trimmer: Will see patient, Agrees with eval, Agrees with plan, Accepts admit Note: Discussed pt's case. Accept admit. Counseled Regarding: Diagnosis, Lab results, Need for admission Discharge & Departure Primary Impression: Chest pain Chest pain type: unspecified Qualified Code: R07.9 - Chest pain, unspecified Disposition: ADMITTED TO HOSPITAL Discharge Condition All VS Reviewed: Yes Condition: Stable Referrals: Sachin Van (PCP) Scribe Attestation Portions of this note were transcribed by Areli Gloria. I, Dr. Fitzgerald personally performed the history, physical exam and medical decision-making; I reviewed and confirmed the accuracy of the information in the transcribed note. Signed: Nicolás Mcfarlane, 06/08/17 copies to: Sachin Van William B MD Jun 08, 2017 08:39 ARELI GLORIA Jun 08, 2017 09:17
[2017-06-08 08:54] LABS: TROPONIN T 0.01 ug/L (0.0-0.011)
--- NOTE | 2017-06-08 09:14 | DRSVH ---
PROCEDURE: X-RAY CHEST, TWO VIEWS ([id number]) INDICATIONS: chest pain TECHNIQUE: 2 views of the chest were acquired. COMPARISON: [facility], , CHEST 2VW, 01/01/2012, 7:08. FINDINGS: Surgical changes and devices: None. Lungs and pleura: No pleural effusions or pneumothorax. Lungs are clear. Mediastinum: Mediastinal contours are normal. Heart size is normal. Bones and chest wall: No suspicious bony abnormalities. Soft tissues appear unremarkable. IMPRESSION: Negative chest. No acute cardiopulmonary process is suspected. Dictated by: Aime Clark M.D. on 06/08/2017 at 8:12 Approved by: Aime Clark M.D. on 06/08/2017 at 8:12
[2017-06-08] MEDS ORDERED: Nitroglycerin 50 mg/250 mL D5W 50,000 MCG in IV Premix 1 EACH IV ONE (09:55)
--- NOTE | 2017-06-08 12:14 | DRSVH ---
PROCEDURE: CT ANGIO CHEST PULMONARY EMBOLISM ([id number]) INDICATIONS: chest pain, elev dimer; eval PE, less likely disse TECHNIQUE: After the administration of intravenous contrast, 2 mm thick sections acquired from the pulmonary api joaquim to the posterior costophrenic angles. 3-dimensional maximum intensity projection (MIP) coronal a nd sagittal reformats were then acquired through the thorax. For radiation dose reduction, the follo wing was used: automated exposure control, adjustment of mA and/or kV according to patient size. COMPARISON: None. FINDINGS: Image quality: Excellent. Pulmonary arteries: Pulmonary arteries are normal in size, and demonstrate no intraluminal filling d efects to suggest central pulmonary embolism. There are several small very distal branches of the ri ght pulmonary artery in the right lower lobe demonstrating heterogeneous opacification. Lungs and pleura: Dependent changes are present within the lungs bilaterally. Mediastinum: Heart size is normal, without pericardial effusion. No mediastinal or hilar adenopathy . Thoracic aorta is normal in caliber and enhancement. Esophagus is normal in caliber, without hiat al hernia. Bones and chest wall: No suspicious bony lesions. Ribs and thoracic spine appear intact throughout. Thyroid gland is unremarkable. No axillary or supraclavicular adenopathy. Abdomen: Visualized upper abdominal solid organs appear normal in the early arterial phase of enhanc ement. IMPRESSION: 1. No central pulmonary embolism. Several small very distal branches of the right pulmonary artery in the right base demonstrate heterogeneous opacification. This is suspected to be artifactual. However , small area of embolus cannot be definitively excluded. Dictated by: Sylvie Hendricks M.D. on 06/08/2017 at 12:09 Approved by: Sylvie Hendricks M.D. on 06/08/2017 at 12:12
--- NOTE | 2017-06-08 15:04 | PCM.HPMED ---
Subjective Date of Service Jun 08, 2017 Primary Provider: Admitting Physician: Primary Care Physician: Sachin Van Attending Physician: Chief Complaint: 61-year-old male presented to the ED with chest pain. History of Present Illness: He carries a medical history significant for diabetes type II, hypertension, dyslipidemia, gout, history of TIA, EtOH abuse, and MGUS. Patient reported sudden onset of midsternal, constant chest pain, characterized as sharp, knifelike, exacerbate with inspiration, and some shortness of breath started last night. There is some associated bilateral shoulder pain as well. Nonradiating, no associated diaphoresis or lightheadedness dizziness, nausea vomiting however. Pt has not slept secondary to the pain. Prior to yesterday, patient stated periods of immobility, driving for 8 hours to and from [place]. In the ED, due to his immobility and pleuritic chest pain, addition to tachycardic, and elevated d-dimer of 4.3, patient was taken to CT angiogram. Imaging did not demonstrate any central pulmonary embolism, does suggest several small distal branches of the right pulmonary artery heterogeneous opacification, this could be artifact or embolism. Patient was thus admitted for further workup of chest pain. Review of Systems: A comprehensive review of systems was conducted with the patient and found to be negative except as above in the History of Present Illness. Allergies Coded Allergies: lisinopril (Verified Allergy, Intermediate, Swelling of lips, 04/22/17) candesartan (Verified Allergy, Unknown, swollen lips, 04/22/17) Bumble Bee (Verified Adverse Reaction, Severe, anaphylactic , 05/06/17) Uncoded Allergies: cilexetil (Allergy, Unknown, 06/08/17) Home Medications Allopurinol 300 mg daily Aspirin 81 mg daily Benazepril 20 mg daily Carvedilol 3.25 mg twice a day Fenofibrate 100 for the 5 mg daily Folic acid 1 mg daily Glyburide 2.5 mg twice a day Lantus 10 units at bedtime Multivitamin daily Thiamine 100 mg daily Exam Review of Systems: Constitutional: Negative, except as otherwise mentioned in the history above. Ophthalmologic: Negative, except as otherwise mentioned in the history above. Cardiovascular: Negative, except as otherwise mentioned in the history above. Respiratory: Negative, except as otherwise mentioned in the history above. Gastrointestinal: Negative, except as otherwise mentioned in the history above. Genitourinary: Negative, except as otherwise mentioned in the history above. Musculoskeletal: Negative, except as otherwise mentioned in the history above. Neurological: Negative, except as otherwise mentioned in the history above. Psychiatric: Negative, except as otherwise mentioned in the history above. Hematologic/Lymphatic: Negative, except as otherwise mentioned in the history above. Allergic/Immunologic: Negative, except as otherwise mentioned in the history above. PMH Type 2 diabetes GERD Hypertension hyperlipidemia History of alcohol use disorder last drink March 2017 Hx pneumonia Hx ulcer Mild arthritis low back TIA monoclonal gammopathy Gout MARGOTH Surgical History None reported Family History Brother has history of kidney cancer Father with kidney cancer, but 2nd to CHF Mother with hypertension Social History Hx Alcohol Use: Yes (DAILY - HARD LIQOUR IN EVENING) Hx Substance Use: No Hx Tobacco Use: No Smoking Status: Unknown if Ever Smoker Exam Vital Signs Vital Sign - Last Date Time Temp Pulse Resp B/P Pulse Ox O2 Delivery O2 Flow Rate FiO2 06/08/17 13:54 98 24 111/67 97 Room Air 06/08/17 08:20 36.8 Lab and Diagnostics X-Rays, CTs and MRIs PROCEDURE: CT ANGIO CHEST PULMONARY EMBOLISM ([id number]) INDICATIONS: chest pain, elev dimer; eval PE, less likely disse IMPRESSION: 1. No central pulmonary embolism. Several small very distal branches of the right pulmonary artery in the right base demonstrate heterogeneous opacification. This is suspected to be artifactual. However, small area of embolus cannot be definitively excluded. Dictated by: Sylvie Hendricks M.D. on 06/08/2017 at 12:09 Assessment & Plan Patient is a 61-year-old male with a medical history significant for diabetes type II, hypertension, dyslipidemia, gout, MARGOTH, and MGUS presented with pleuritic chest pain, admitted under high suspicion for PE/DVT Chest pain -strong concerns for PE, Wells score 7.5, D-Dimer+++, -CT-angio possible PE -PE/DVT heparin protocol, b/l lower leg duplex -trops trending, lipid panel, echocardiogram workup for possible CT -consider further workup for hypercoag if duplex negative Diabetes type II -lantus 10u and lispro sliding scale -A1c pending Hypertension -cont home carvedilol -on home benazepril, though allergic to liliana-i. will need to verify with med rec pharm Dyslipidemia -cont home fenofibrate Alcohol use disorder -last drink in -cont home vitamins CODE STATUS full code DVT prophylaxis heparin per protocol Patient Status: Patient is admitted under observation status with expected length of stay LESS than 2 midnights due to severity of presenting symptoms, risk of adverse event, and complexity of treatment plan. GI Prophylaxis: Not indicated Resuscitation Status: CPR: Attempt Resuscitation Attending Statement The patient was seen and examined together with Dr. Gramajo on 06/08/17 and I agree with the history, exam and plan as outlined in the note above. Charli Gramajo DO Jun 08, 2017 15:04 Santiago Ferreira Jun 16, 2017 08:13
[2017-06-08] MEDS ORDERED: Atropine 1 mg/10 mL (Code) Syringe IVPUSH PRN (15:05)
[2017-06-08] MEDS ORDERED: Senna-Docusate 8.6-50 mg Tablet PO PRN (15:05)
[2017-06-08] MEDS ORDERED: Polyethylene Glycol (PEG) 17 Gm Powder PO PRN (15:05)
[2017-06-08] MEDS ORDERED: Alum-Mag Hydrox-Simeth 30 mL Suspension PO PRN (15:05)
[2017-06-08] MEDS ORDERED: Ondansetron 2 mg/mL 2 mL Inj IVPUSH PRN (15:05)
[2017-06-08 15:27] LABS: Creatine Kinase 74 U/L (21-232)
[2017-06-08] MEDS ORDERED: BENA20TA PO (15:46)
[2017-06-08] MEDS ORDERED: ASPI-973 PO (15:46)
[2017-06-08] MEDS ORDERED: MULT-666 PO (15:46)
[2017-06-08] MEDS ORDERED: THIA100T64 PO (15:46)
[2017-06-08] MEDS ORDERED: Heparin 5,000 Unit/mL Inj IVPUSH PRN (15:55)
--- NOTE | 2017-06-08 16:00 | NUR ---
[place] [facility] [place] received from Nena Lancaster RN in ED. Pt brought up to unit around 1600. Partial Admit done by Admit nurse, remaining admission completed finished. Pt oriented to unit, room and call light. Pt reports mild 3/10 CP with deep breathing, no pain when pressing on chest. Pt strong and steady on feet - Independent in room. Instructed to use call light as needed. Board updated with plan of care, plan for Stress test at 8AM in morning (NPO at midnight, no caffiene after 7pm). Bedside Blood sugar of 78. Heparin drip started per protocol. Continuing with care.
[2017-06-08] MEDS ORDERED: Heparin Initial Bolus IVPUSH ONE (16:10)
[2017-06-08] MEDS ORDERED: Glucose 40% Oral Gel 15 Gm Tube PO PRN (16:15)
[2017-06-08] MEDS ORDERED: Dextrose 10% 250 ML IV PRN (16:30)
[2017-06-08] MEDS ORDERED: Heparin 5,000 Unit/mL Inj SUBQ SCH (16:30)
[2017-06-08] MEDS: 0.9% Sodium Chloride 1,000 ML IV SCH (17:20)
[2017-06-08] MEDS: Sodium Chloride LOK Flush 10 mL Syringe IVFLUSH SCH (17:20)
[2017-06-08] MEDS: Insulin LISPRO 300 Unit/3 mL Inj SUBQ SCH ×2 (17:21→22:00)
--- NOTE | 2017-06-08 17:26 | DRSVH ---
PROCEDURE: US VENOUS LEG DUPLEX BILATERAL INDICATIONS: dvt? TECHNIQUE: Real-time imaging, as well as color and pulse Doppler interrogation, were performed of the deep veins of both legs from the inguinal ligament to the popliteal fossa. COMPARISON: None. FINDINGS: The deep veins are normally compressible, and free of intraluminal thrombus. Color and pu lse Doppler demonstrate normal phasic intravascular flow. There is normal augmentation response to d istal compression maneuver. IMPRESSION: No evidence for deep venous thrombosis is found in the right lower extremity with this d uplex venous Doppler study. No evidence for deep venous thrombosis is found in the left lower extremity with this duplex venous D oppler study. Dictated by: Darwin Chen M.D. on 06/08/2017 at 17:24 Approved by: Darwin Chen M.D. on 06/08/2017 at 17:24
[2017-06-08] MEDS: Heparin 25K Unit/500mL 0.45 NS 25,000 UNIT in IV Premix 1 EACH IV SCH (17:33)
--- NOTE | 2017-06-08 19:55 | NUR ---
Chest pain pa c/o CP after getting oob to BR, described as sharp but more intense with inhalation resolved after returning to bed ekg ordered per orders declined any thing for pain @ this time
[2017-06-08] MEDS ORDERED: Insulin GLARgine 100 Unit/mL Syringe SUBQ SCH (21:00)
[2017-06-09] MEDS: Sodium Chloride LOK Flush 10 mL Syringe IVFLUSH SCH ×3 (00:30→15:23)
[2017-06-09 00:45] VITALS: BP 106/69; PULSE 81; RESP 16; O2SAT 95
[2017-06-09 04:55] VITALS: BP 100/66; PULSE 70; RESP 16; O2SAT 96
[2017-06-09] MEDS: Heparin 25K Unit/500mL 0.45 NS 25,000 UNIT in IV Premix 1 EACH IV SCH (05:16)
[2017-06-09 05:41] LABS: Mean Corpuscular Hemoglobin 30.4 pg (27.0-35.0); Mean Corpuscular Volume 90.2 fL (81-100)
[2017-06-09] MEDS: 0.9% Sodium Chloride 1,000 ML IV SCH ×2 (05:54→15:23)
[2017-06-09] MEDS: Insulin LISPRO 300 Unit/3 mL Inj SUBQ SCH ×3 (08:00→17:30)
--- NOTE | 2017-06-09 08:27 | NUR ---
OFF FLOOR pt transported via W/C to [place] for stress test. Heparin drip running, pt denies CP/pain/distress.
[2017-06-09] MEDS ORDERED: BENAZEPRIL 20 MG PO SCH (08:30)
[2017-06-09 10:30] VITALS: PULSE 77
[2017-06-09 12:10] VITALS: BP 108/68; PULSE 74; RESP 16; O2SAT 96
--- NOTE | 2017-06-09 12:49 | DRSVH ---
PROCEDURE: 1 DAY TREADMILL STRESS TEST Rest and exercise myocardial perfusion SPECT with gated imaging and ejection fraction RADIOPHARMACEUTICAL: 10.9 mCi Tc-99m tetrafosmin IV at rest and 27.6 mCi Tc-99m tetrafosmin IV at pea k exercise. [id number] was performed. INDICATIONS: 61 year-old male with chest pain. The patient has diabetes, hypertension, and hyperlipi demia. He also has family history of coronary artery disease. Evaluate myocardial ischemia. TECHNIQUE: Radiopharmaceutical was injected at peak stress test, and also at rest. SPECT images wer e obtained. SPECT myocardial perfusion images were displayed in short axis, horizontal long axis, an d vertical long axis views. Gated images were reviewed using [employer] software. COMPARISON: None. CARDIAC STRESS: A standard Richard treadmill exercise tolerance test was performed by the patient under the supervision of an attending staff. The patient exercised for 4 minutes and 25 seconds; functional aerobic impai rment (MARIO) is + 35 %. Hemodynamic data: There is normal blood pressure and heart rate response to exercise stress. Patien t achieved 87% of maximum predicted heart rate at peak exercise. Symptoms: Patient denied chest pain during exercise. EKG: No diagnostic EKG changes of ischemia; no ectopy. FINDINGS: Raw data: There is good myocardial labeling by radiotracer. No significant motion artifacts. Left ventricle function: Gated images demonstrate normal left ventricle wall thickening. No segment al wall motion abnormality. No transient ischemic dilation. The left ventricle resting end-diastoli c volume is normal. Left ventricle stress ejection fraction is 70%; normal values are above 45%. Myocardial perfusion: There is normal distribution of activity in the left and right ventricular grace cardium. No fixed or reversible perfusion defects. IMPRESSION: 1. Normal myocardial perfusion images. 2. Normal left ventricular volume and systolic function. 3. Limited exercise capacity. No chest pain or diagnostic EKG changes for ischemia. PQRS ATTESTATIONS: Measure 322 - Is this imaging test primarily performed on a low-risk surgery patient for preoperative evaluation within 30 days preceding their low-risk non-cardiac surgery? Low-risk surgery is defined as cardiac or myocardial infarction less than 1%, including (but not limited to) endoscopic pr ocedures, superficial procedures, cataract surgery, and excisional breast surgery: Answer: No Measure 323 - Is this imaging test performed primarily for the monitoring of an asymptomatic patient who had percutaneous coronary intervention on the visit date or within 2 years of the visit date? An swer: No Measure 324 - Is this imaging test performed primarily for the initial detection and risk assessment on an asymptomatic, low coronary heart disease patient? Low CHD risk definition = clinicians should consider the maximum number of available patient factors used to estimate risk based on [place] (A TP III criteria), typically age, gender, diabetes, smoking status, and use of blood pressure medicati on, and integrate age appropriate estimates for missing elements, such as LDL or standard blood press ure. Answer: No Dictated by: Monse Hernandez M.D. on 06/09/2017 at 12:43 Approved by: Monse Hernandez M.D. on 06/09/2017 at 12:47
--- NOTE | 2017-06-09 16:48 | PCM.DC.MED ---
Discharge Summary Date of Service Jun 09, 2017 Dates of Hospitalization Date of Hospital Admission Jun 08, 2017 at 15:23 Date of Discharge: Jun 09, 2017 Providers: Admitting Physician: Santiago Ferreira Primary Care Physician: Sachin Van Attending Physician: Erwin Chua DO Diagnosis at Time of Discharge Diagnosis at Time of Discharge Chest pain; likely costochondritis Diabetes type II Hypertension Dyslipidemia Alcohol use disorder Procedures XRay, CTs & MRIs PROCEDURE: CT ANGIO CHEST PULMONARY EMBOLISM ([id number]) INDICATIONS: chest pain, elev dimer; eval PE, less likely disse IMPRESSION: 1. No central pulmonary embolism. Several small very distal branches of the right pulmonary artery in the right base demonstrate heterogeneous opacification. This is suspected to be artifactual. However, small area of embolus cannot be definitively excluded. Dictated by: Sylvie Hendricks M.D. on 06/08/2017 at 12:09 Brief History He carries a medical history significant for diabetes type II, hypertension, dyslipidemia, gout, history of TIA, EtOH abuse, and MGUS. Patient reported sudden onset of midsternal, constant chest pain, characterized as sharp, knifelike, exacerbate with inspiration, and some shortness of breath started last night. There is some associated bilateral shoulder pain as well. Nonradiating, no associated diaphoresis or lightheadedness dizziness, nausea vomiting however. Pt has not slept secondary to the pain. Prior to yesterday, patient stated periods of immobility, driving for 8 hours to and from [place]. In the ED, due to his immobility and pleuritic chest pain, addition to tachycardic, and elevated d-dimer of 4.3, patient was taken to CT angiogram. Imaging did not demonstrate any central pulmonary embolism, does suggest several small distal branches of the right pulmonary artery heterogeneous opacification, this could be artifact or embolism. Patient was thus admitted for further workup of chest pain. Hospital Course Patient is a 61-year-old male with a medical history significant for diabetes type II, hypertension, dyslipidemia, gout, MARGOTH, and MGUS presented with pleuritic chest pain, admitted under suspicion for PE/DVT Chest pain -Strong concerns for PE, Wells score 7.5, D-Dimer+++, Unlikely but possible small peripheral PE could not be excluded on right side. -PE/DVT heparin protocol, b/l lower leg duplex -troponin trended negative, lipid panel unremarkable -consider further workup for hypercoag if duplex negative Diabetes type II -Lantus 10u and lispro sliding scale -A1c 6.8 suggesting adequate control. Hypertension -Continue home carvedilol -Also on home benazepril Dyslipidemia -Cont home fenofibrate Alcohol use disorder -last drink in -cont home vitamins Exam Vital Signs (Last) Date Time Temp Pulse Resp B/P Pulse Ox O2 Delivery O2 Flow Rate FiO2 06/09/17 12:10 37.2 74 16 108/68 96 Room Air Test 06/08/17 08:20 06/08/17 23:13 06/09/17 05:00 Neutrophils (%) (Auto) 79.3% (40-74) Lymphocytes (%) (Auto) 9.8% (14-46) Monocytes (%) (Auto) 8.4% (4-12) Eosinophils (%) (Auto) 2.1% (0-5) Basophils (%) (Auto) 0.2% (0-3) D-Dimer 4.03mg/L FEU (<0.50) Hemoglobin A1c 6.8% (4.8-5.6) Total Bilirubin 0.7mg/dL (0.0-1.2) Aspartate Amino Transf (AST/SGOT) 26U/L (0-50) Alanine Aminotransferase (ALT/SGPT) 25U/L (0-44) Alkaline Phosphatase 55U/L (25-160) Total Creatine Kinase 74U/L (21-232) Creatine Kinase MB 1.4ng/mL (0.0-10.4) Creatine Kinase MB % % (0.0-5.0) Total Protein 7.7g/dL (6.4-8.4) Albumin 4.4g/dL (3.4-5.0) Lipase 52U/L (13-60) Thyroid Stimulating Hormone (TSH) 1.690uIU/mL (0.450-4.500) Hold Jacob Top Tube Received (Received) Troponin T < 0.010ug/L (0.0-0.011) White Blood Count 6.9th/mm3 (3.8-10.1) Red Blood Count 4.08mil/mm3 (4.40-5.80) Hemoglobin 12.4g/dL (13.8-17.2) Hematocrit 36.8% (41.0-50.0) Mean Corpuscular Volume 90.2fL (81-100) Mean Corpuscular Hemoglobin 30.4pg (27.0-35.0) Mean Corpuscular Hemoglobin Concent 33.7% (32.0-37.0) Red Cell Distribution Width 13.8% (12.3-15.4) Platelet Count 121bil/L (150-400) Activated Partial Thromboplast Time 71.1sec (22.8-33.0) Sodium Level 140mEq/L (134-144) Potassium Level 3.9mEq/L (3.5-5.2) Chloride Level 105mEq/L (97-108) Carbon Dioxide Level 21mmol/L (18-29) Blood Urea Nitrogen 16mg/dL (6-24) Creatinine 0.99mg/dL (0.76-1.27) Estimat Glomerular Filtration Rate 82mL/min (>59) Glucose Level 109mg/dL (60-99) Calcium Level 8.7mg/dL (8.5-10.1) Triglycerides Level 91mg/dL (0-149) Cholesterol Level 95mg/dL (100-199) LDL Cholesterol, Calculated 41.800mg/dL (0-99) VLDL Cholesterol 18.200mg/dL HDL Cholesterol 35mg/dL (>39) Cholesterol/HDL Ratio 2.71 (0.0-4.4) General: Alert, Oriented X3, Cooperative, No Acute Distress Mouth: Mucous Membr Moist/Bache Chest & Lungs: Clear to auscultation & percussion Cardiovascular: Regular Rate/Rhythm Abdomen: Non-tender, Non-distended Extremities: No cyanosis/clubbing/edma bilat Neurological: Grossly Neurologically Intact Discharge Medications Discharge Medications Allopurinol (Allopurinol) 300 Mg Tablet 300 MG PO DAILY (Reported) Aspirin (Aspirin) 81 Mg Tablet 81 MG PO DAILY (Reported) Benazepril (Benazepril) 20 Mg Tablet 20 MG PO DAILY (Reported) Carvedilol (Coreg) 3.125 Mg Tablet 3.125 MG PO BID Prescribed by: ELVER PEDRAZA MD Fenofibrate Nanocrystallized (Fenofibrate) 145 Mg Tablet 145 MG PO DAILY ( Reported) Folic Acid (Folic Acid) 1 Mg Tablet 1 MG PO DAILY Prescribed by: ELVER PEDRAZA MD Glyburide (Glyburide) 2.5 Mg Tablet 2.5 MG PO BID (Reported) Insulin Glargine (Lantus U100 Insulin Vial) 100 Unit/Ml Vial 10 UNIT SUBQ HS ( Reported) Multivitamin (Once Daily) 1 Each Tablet 1 EACH PO DAILY (Reported) Thiamine Mononitrate (Vitamin B-1) 100 Mg Tablet 100 MG PO DAILY (Reported) Followup Plan Disposition: Home with Follow-up plan You will be discharged home, plan to follow-up with her primary care provider in the next 1-2 weeks. Should symptoms return, specifically sharp chest pain that causes shortness of breath, he should contact her primary care provider immediately or consider return to emergency department if symptoms are severe or more so than on this presentation. Additionally consider seeking professional evaluation for any chest pain or palpitations, in addition to sweats or chills associated with shortness of breath. Discharge Diet: No restrictions, Heart Healthy Discharge Activity: No restrictions Follow-up Provider: Sachin Van Follow-up with PCP in: 1 week copies to: Sachin Van Vital Signs Vital Sign - Last Date Time Temp Pulse Resp B/P Pulse Ox O2 Delivery O2 Flow Rate FiO2 06/09/17 12:10 37.2 74 16 108/68 96 Room Air Intake and Output 06/08/17 06/08/17 06/09/17 Cumulative From/Thru 15:00 23:00 07:00 06/08/17 08:20 - 06/09/17 06:33 Intake Total 1781 ml 1781 ml Output Total 1250 ml 1250 ml Balance 531 ml 531 ml Intake Oral 250 ml 250 ml IV Total 1531 ml 1531 ml Output Urine Total 1250 ml 1250 ml # Bowel Movements 0 0 Lab and Diagnostics Result Diagram: 06/09/17 0500 06/09/17 0500 Erwin Chua DO Jun 09, 2017 16:48
--- NOTE | 2017-06-09 16:54 | NUR ---
Social Work-screening/ discharge: Data:EMR Reviewed. Pt is a 61 y/o male who was admitted on 06/08/17 for chest pain per H&P. Pt's insurance is [employer] and PCP is DOM Armando. Pt resides at home with where he remains independent with ADLs. Pt has been up independent in his room. No anticipated discharge needs. All updated and agreeable to plan. Assessment:Pt who is independent at baseline. Plan:pt to discharge home today via POV. No anticipated discharge needs. All updated and agreeable to plan. NGA Gonsales
--- NOTE | 2017-06-09 16:55 | PCM.DIMED ---
Discharge Instructions Date of Service Jun 09, 2017 Dates of Hospitalization Jun 08, 2017 at 15:23 Discharge Diagnosis Discharge Diagnosis Chest pain; likely costochondritis. There were some concerns for pulmonary embolism on admission to the hospital, CT scan could not entirely ruled out but it appeared unlikely. Additionally extensive cardiac evaluation demonstrated no evidence cardiac disease. Most likely evaluation appears to be costochondritis or muscle strain around rib based on findings/studies. And should resolve with time. [id number] pain medication can be taken to relieve symptoms, such as Advil or ibuprofen, and addition to continuing other home medications. Diabetes type II Hypertension Dyslipidemia Alcohol use disorder Diet Discharge Diet: No restrictions, Heart Healthy Activity Discharge Activity: No restrictions Patient Instructions Follow-up plan You will be discharged home, plan to follow-up with her primary care provider in the next 1-2 weeks. Should symptoms return, specifically sharp chest pain that causes shortness of breath, he should contact her primary care provider immediately or consider return to emergency department if symptoms are severe or more so than on this presentation. Additionally consider seeking professional evaluation for any chest pain or palpitations, in addition to sweats or chills associated with shortness of breath. Follow-up Provider: Sachin Van Follow-up with PCP in: 1 week Erwin Chua DO Jun 09, 2017 16:55
--- NOTE | 2017-06-09 17:15 | NUR ---
discharge paperwork reviewed,no questions at this time. IV and Tele discontinued. pt denies pain/distress/CP. pt refuses W/C ride to private car to return to private home with . and daughter with patient at discharge.
== END 2017-06-09 17:30 | disposition home or self-care (01) ==
LOC: SED 08:08 → MPC 15:23
PROVIDERS: ADMIT Internal Medicine; ATTEND Family Medicine
DX: R07.81 Pleurodynia (principal); E11.9 Type 2 diabetes mellitus without complications; E78.5 Hyperlipidemia, unspecified; F10.10 Alcohol abuse, uncomplicated; I10 Essential (primary) hypertension; Z79.84 Long term (current) use of oral hypoglycemic drugs; Z79.82 Long term (current) use of aspirin; Z79.4 Long term (current) use of insulin; Z86.73 Personal history of transient ischemic attack (TIA), and cerebral infarction without residual deficits; G47.33 Obstructive sleep apnea (adult) (pediatric)